=== PATIENT | female | born 1940 | race Caucasian/White ===

== ENCOUNTER 2016-08-23 09:38 | Inpatient (IN) | payer MEDICARE, MEDICAID ==
[~2016-08-23] VITALS: Ht 154.9 cm; Wt 58.9 kg
[2016-08-23] VITALS (14 sets, daily range): BP systolic 93–159; BP diastolic 46–94; PULSE 71–97; RESP 15–22; TEMP 97.6–98.8; O2SAT 95–100
[~2016-08-23 09:38] MED LIST: AMLO5TAB2 PO; COUM2TAB PO; DIGO0.12 PO; ESCI10TA PO; FURO20TA PO; MIRTA15 PO; MONT10TA4 PO; OMEP20TA PO; RANI150C PO; ROSU10 PO; ZYRT10CA PO
[2016-08-23] MEDS ORDERED: WARF-23 PO (10:08)
[2016-08-23] MEDS ORDERED: RANI300T PO (10:08)
[2016-08-23] MEDS ORDERED: AMLO10TA2 PO (10:08)
[2016-08-23] MEDS ORDERED: WARF4TAB52 PO (10:09)
[2016-08-23] MEDS ORDERED: WARF-20 PO (10:09)
--- NOTE | 2016-08-23 10:11 | PD ---
HPI Chief Complaint: GI Complaint Time Seen by Provider: 10:04 Travel History International Travel<30 days: No Contact w/Intl Traveler<30days: No Traveled to known affect area: No History of Present Illness HPI 76-year-old female with history of A. fib, on Coumadin, previous stroke with expressive aphasia, previous GI bleeding, presents to the ER today brought in by EMS because she has been vomiting red blood since this morning. She was sent in by family. She has difficulty expressing herself but denies chest pains , trouble breathing, or other issues. Modifying Factors: None Associated Signs & Symptoms: Gastrointestinal bleeding Risk Factors: Coumadin PFSH Past Medical History Hx Anticoagulant Therapy: Yes Anemia: Yes Arthritis: No Asthma: No Atrial Fibrillation: Yes Autoimmune Disease: No Heart Rhythm Problems: Yes (Afib) Cancer: Yes (COLON / LUNG) Cardiovascular Problems: Yes High Cholesterol: No Chemotherapy: Yes Chest Pain: No Congestive Heart Failure: No COPD: No Cerebrovascular Accident: Yes Diabetes: No Diminished Hearing: No Endocrine: No Gastrointestinal Disorders: Yes GERD: Yes (GERD) Genitourinary: No Headaches: No Hiatal Hernia: No Hypertension: Yes Immune Disorder: No Implanted Vascular Access Dvce: No Musculoskeletal: No Neurologic: Yes (CVA X3 / Expressive Aphasia) Psychiatric: No Reproductive: No Respiratory: Yes Immunizations Current: No Migraines: No Radiation Therapy: Yes Seizures: Yes (Possibly reported / uncertain hx) Sickle Cell Disease: No Sleep Apnea: No Thyroid Disease: No Ulcer: No Menopausal: Yes Past Surgical History Abdominal Surgery: Yes (hsterectomy) AICD: No Arteriovenous Shunt: No Cardiac Surgery: Yes (afib) Ear Surgery: No Endocrine Surgery: No Eye Surgery: Yes (cataracts) Genitourinary Surgery: No Gynecologic Surgery: No Hysterectomy: Yes Insulin Pump: No Joint Replacement: No Neurologic Surgery: No Oral Surgery: No Pacemaker: No Thoracic Surgery: Yes (LEFT LUNG REMOVED) Other Surgery: Yes Social History Alcohol Use: No Tobacco Use: No Substance Use: No Allergies-Medications (Allergen,Severity, Reaction): Coded Allergies: Iron (Verified Allergy, Severe, Nausea/Vomiting, 05/24/16) Lipitor (Verified Allergy, Severe, Swelling, 05/24/16) JOINT SWELLING/PAIN Nonsteroidal Anti-Inflammatory Agts (Verified Allergy, Severe, GI UPSET AND SWELLING, 05/24/16) Cardizem (Verified Allergy, Unknown, RASH, 05/24/16) Reported Meds & Prescriptions Reported Meds & Active Scripts Active Reported Warfarin 3 Mg Tab 3 Mg PO DAILY Amlodipine (Amlodipine Besylate) 10 Mg Tab 10 Mg PO DAILY Ranitidine (Ranitidine HCl) 300 Mg Tab 300 Mg PO DAILY Montelukast (Montelukast Sodium) 10 Mg Tab 10 Mg PO HS Digoxin 0.125 Mg Tab 0.125 Mg PO EVERY OTHER DAY Furosemide 20 Mg Tab 20 Mg PO DAILY Omeprazole 20 Mg Tab 20 Mg PO DAILY Crestor (Rosuvastatin Calcium) 10 Mg Tab 10 Mg PO DAILY Mirtazapine 15 Mg Tab 15 Mg PO HS Escitalopram (Escitalopram Oxalate) 10 Mg Tab 10 Mg PO DAILY Review of Systems Except as stated in HPI: all other systems reviewed are Neg Physical Exam Narrative GENERAL: Well-nourished, well-developed elderly white female patient in no acute distress. Awake and oriented 3. SKIN: Warm and dry. Pale conjunctiva. HEAD: Normocephalic. EYES: No scleral icterus. No injection or drainage. NECK: Supple, trachea midline. CARDIOVASCULAR: Regular rate and rhythm without murmurs, gallops, or rubs. RESPIRATORY: Breath sounds equal bilaterally. No accessory muscle use. GASTROINTESTINAL: Abdomen soft, non-tender, nondistended. MUSCULOSKELETAL: No cyanosis, or edema. BACK: Nontender without obvious deformity. No CVA tenderness. Data Data Last Documented VS Vital Signs Date Time Temp Pulse Resp B/P Pulse Ox O2 Delivery O2 Flow Rate FiO2 08/23/16 09:54 98.8 86 22 98/46 99 Orders Complete Blood Count With Diff (08/23/16 10:01) Comprehensive Metabolic Panel (08/23/16 10:01) Lipase (08/23/16 10:01) Prothrombin Time / Inr (Pt) (08/23/16 10:01) Act Partial Throm Time (Ptt) (08/23/16 10:01) Type And Screen (08/23/16 10:01) Ecg Monitoring (08/23/16 10:01) Iv Access Insert/Monitor (08/23/16 10:01) Oximetry (08/23/16 10:01) Sodium Chloride 0.9% Flush (Ns Flush) (08/23/16 10:15) Sodium Chlor 0.9% 1000 Ml Inj (Ns 1000 M (08/23/16 10:15) Pantoprazole Inj (Protonix Inj) (08/23/16 10:15) Phytonadione Inj (Vitamin K Inj) (08/23/16 10:15) Digoxin (08/23/16 10:10) Red Blood Cells (Rbc) (08/23/16 10:34) Fresh Frozen Plasma (Ffp) (08/23/16 10:34) Blood Product Administration .UPON TRANSFUSION (08/23/16 10:34) Sodium Chlor 0.9% 250 Ml Inj (Ns 250 Ml (08/23/16 10:45) Octreotide Inj (Sandostatin Inj) (08/23/16 10:45) Admit Order (Ed Use Only) (08/23/16 10:54) Consult Gastroenterology (08/23/16 ) Labs Laboratory Tests Test 08/23/16 08/23/16 08/23/16 10:10 10:11 10:34 White Blood Count 9.5 TH/MM3 Red Blood Count 2.60 MIL/MM3 Hemoglobin 7.5 GM/DL Hematocrit 23.0 % Mean Corpuscular Volume 88.6 FL Mean Corpuscular Hemoglobin 28.9 PG Mean Corpuscular Hemoglobin 32.6 % Concent Red Cell Distribution Width 17.0 % Platelet Count 345 TH/MM3 Mean Platelet Volume 8.1 FL Neutrophils (%) (Auto) 51.7 % Lymphocytes (%) (Auto) 36.2 % Monocytes (%) (Auto) 7.8 % Eosinophils (%) (Auto) 3.5 % Basophils (%) (Auto) 0.8 % Neutrophils # (Auto) 4.9 TH/MM3 Lymphocytes # (Auto) 3.4 TH/MM3 Monocytes # (Auto) 0.7 TH/MM3 Eosinophils # (Auto) 0.3 TH/MM3 Basophils # (Auto) 0.1 TH/MM3 CBC Comment DIFF FINAL Differential Comment Prothrombin Time 65.4 SEC Prothromb Time International 5.5 RATIO Ratio Activated Partial 36.6 SEC Thromboplast Time Sodium Level 144 MEQ/L Potassium Level 4.7 MEQ/L Chloride Level 109 MEQ/L Carbon Dioxide Level 21.8 MEQ/L Anion Gap 13 MEQ/L Blood Urea Nitrogen 44 MG/DL Creatinine 1.47 MG/DL Estimat Glomerular Filtration 34 ML/MIN Rate Random Glucose 188 MG/DL Calcium Level 8.0 MG/DL Total Bilirubin 0.3 MG/DL Aspartate Amino Transf 16 U/L (AST/SGOT) Alanine Aminotransferase 16 U/L (ALT/SGPT) Alkaline Phosphatase 88 U/L Total Protein 5.7 GM/DL Albumin 3.0 GM/DL Lipase 140 U/L Digoxin Level 0.6 NG/ML Blood Type O POSITIVE Antibody Screen NEGATIVE Crossmatch Leukocyte-Reduced Red Blood Cells Blood Bank Comment MDM Medical Decision Making Medical Screen Exam Complete: Yes Emergency Medical Condition: Yes Medical Record Reviewed: Yes Interpretation(s) Laboratory Tests Test 08/23/16 10:10 Red Blood Count 2.60 MIL/MM3 (4.00-5.30) Hemoglobin 7.5 GM/DL (11.6-15.3) Hematocrit 23.0 % (35.0-46.0) Prothrombin Time 65.4 SEC (9.8-11.6) Activated Partial 36.6 SEC Thromboplast Time (24.3-30.1) Chloride Level 109 MEQ/L (98-107) Blood Urea Nitrogen 44 MG/DL (7-18) Creatinine 1.47 MG/DL (0.50-1.00) Estimat Glomerular Filtration 34 ML/MIN (>89) Rate Random Glucose 188 MG/DL (74-106) Calcium Level 8.0 MG/DL (8.5-10.1) Albumin 3.0 GM/DL (3.4-5.0) Differential Diagnosis Gastrointestinal bleedingrevaluate for anemia versus coagulopathy Narrative Course Patient is anemic. INR is elevated. Patient was given vitamin K, FFP's, 1 L of fluids, Protonix, octreotide, 2 units of PRBCs in the ER. Case was discussed with Dr. Robison for admission. Dr. Prakash has been called regarding case. Planning to admit to ICU. We had made several attempts to contact GI including Dr. Olinda Nicholas but was unsuccessful. Consult has been placed for him. Aggregate critical care time was 30 minutes. Time to perform other separately billable procedures was not included in the critical care time. My time did not include minutes spent treating any other patients simultaneously or on activities that did not directly contribute to the patient's treatment. The services I provided to this patient were to treat and/or prevent clinically significant deterioration that could result in: Worsening GI bleeding, significant anemia, cardiac arrest, I provided critical care services requiring my management, as noted below: Chart data review, documentation time, medication orders and management, vital sign assessments/reviewing monitor data, ordering and reviewing lab tests, ordering and interpreting/reviewing x-rays and diagnostic studies, care of the patient and discussion of the patient with the admitting physicians. Diagnosis Primary Impression: Coagulopathy Additional Impressions: Bleeding on Coumadin Upper GI bleed Anemia Admitting Information Admitting Physician Requests: Admit Mando Osullivan MD Aug 23, 2016 10:11
[2016-08-23] MEDS ORDERED: WARF-58 PO (10:13)
[2016-08-23] MEDS ORDERED: PANTOPRAZOLE INJ 80 MG in SODIUM CHLORIDE 0.9% INJ 35 ML IV ONE (10:15)
[2016-08-23] MEDS ORDERED: PHYTONADIONE INJ 10 MG in SODIUM CHLORIDE 0.9% INJ 50 ML IV ONE (10:15)
[2016-08-23] MEDS ORDERED: SODIUM CHLOR 0.9% 1000 ML INJ 1,000 ML IV ONE (10:15)
[2016-08-23] MEDS ORDERED: SODIUM CHLORIDE 0.9% FLUSH 5 ML FLUSH IVF PRN (10:15)
[2016-08-23 10:27] LABS: AUTOMATED NEUTROPHIL # 4.9 TH/MM3 (1.8-7.7); BASOPHIL # 0.1 TH/MM3 (0-0.2); BASOPHIL % 0.8 % (0.0-2.0); EOSINOPHIL # 0.3 TH/MM3 (0-0.4); EOSINOPHIL % 3.5 % (0.0-4.0); HEMO FLAGS DIFF FINAL; LYMPH % 36.2 % (9.0-44.0); LYMPHOCYTE # 3.4 TH/MM3 (1.0-4.8); MEAN CELL VOLUME 88.6 FL (80.0-100.0); MEAN CORPUSCULAR HEMOGLOBIN 28.9 PG (27.0-34.0); MEAN CORPUSCULAR HGB CONC 32.6 % (32.0-36.0); MONO % 7.8 % (0.0-8.0); NEUT % 51.7 % (16.0-70.0); PLATELET COUNT 345 TH/MM3 (150-450); WHITE BLOOD COUNT 9.5 TH/MM3 (4.0-11.0)
[2016-08-23 10:43] LABS: ALT (GPT) 16 U/L (10-53); ANION GAP 13 MEQ/L (5-15); APTT (PATIENT) 36.6 SEC (24.3-30.1); AST (GOT) 16 U/L (15-37); BICARBONATE 21.8 MEQ/L (21.0-32.0); BLOOD UREA NITROGEN 44 MG/DL (7-18); CHLORIDE 109 MEQ/L (98-107); GLOMERULAR FILTRATION RATE 34 ML/MIN (>89); INTERNATIONAL NORMALIZED RATIO 5.5 RATIO; POTASSIUM 4.7 MEQ/L (3.5-5.1); PROTHROMBIN TIME - PATIENT 65.4 SEC (9.8-11.6); SODIUM (NA) 144 MEQ/L (136-145)
[2016-08-23] MEDS ORDERED: SODIUM CHLOR 0.9% 250 ML INJ 250 ML IV ONE ×2 (10:45→17:30)
[2016-08-23 10:58] LABS: ALKALINE PHOSPHATASE 88 U/L (45-117); DIGOXIN 0.6 NG/ML (0.8-2.0); TOTAL BILIRUBIN ADULT 0.3 MG/DL (0.2-1.0)
[2016-08-23] MEDS: OCTREOTIDE INJ 500 MCG in SODIUM CHLORID 0.9% 500 ML INJ 500 ML IV SCH ×2 (11:11→22:30)
[2016-08-23] MEDS ORDERED: ONDANSETRON HCL 4 MG/2 ML VIAL IVP PRN (11:15)
[2016-08-23] MEDS ORDERED: NALOXONE HCL 0.4 MG/ML AMP IV PRN (11:15)
[2016-08-23] MEDS ORDERED: SODIUM CHLORIDE 0.9% FLUSH 5 ML FLUSH FLUSH PRN (11:15)
--- NOTE | 2016-08-23 11:19 | HP.UPD ---
H&P Update Note This is a 76-year-old female with a history of 3 strokes. She has atrial fibrillation and is on Coumadin. She came into the emergency department today 08/23/16 with hematemesis. She has a hemoglobin of 7.5 and an INR of 5.5. Systolic of 90. Borderline hemorrhagic shock. She is being admitted to ICU. She's been started on intravenous Protonix, fresh frozen plasma and octreotide drip. Vitamin K is also given. Patient seen and examined by the undersigned in room E 49 in the presence of her daughter. Case discussed with emergency department physician. GI consulted. Full history and physical to follow Lincoln Newsome MD Aug 23, 2016 11:17
[2016-08-23] MEDS ORDERED: SODIUM CHLOR 0.9% 1000 ML INJ 1,000 ML IV SCH (12:00)
[2016-08-23] MEDS: MORPHINE SULFATE 4 MG/ML INJ IV PUSH PRN ×2 (13:14→16:32)
--- NOTE | 2016-08-23 13:44 | PD.PN.STU ---
Subjective Remarks Patient is a 76 year old female with previous history of 3 strokes, A fib and on Coumadin. She comes into the ED today with hematemesis, systolic blood pressure of 93, Hgb of 7.5 and INR of 5.5. The patient points to whole abdominal wall when asked where pain is. The patient is a very poor historian and no other history could be obtained. Objective Vitals General: In abdominal distress grabbing various parts of her abdominal wall. Also trying to vomit in a bag. Poor historian and can't explain her pain and symptoms. ABD: normal bowel sounds heard, light palpation illicit pain in epigastrium and right and left abdominal pritchett. Vital Signs Date Time Temp Pulse Resp B/P Pulse Ox O2 Delivery O2 Flow Rate FiO2 08/23/16 13:11 71 16 110/55 100 Nasal Cannula 4 08/23/16 12:35 72 18 116/54 100 Nasal Cannula 4 08/23/16 12:03 97.6 73 18 107/52 100 Nasal Cannula 4 08/23/16 11:54 97.7 86 18 94/55 98 Nasal Cannula 4 08/23/16 11:50 97.7 77 18 94/55 95 Nasal Cannula 4 08/23/16 11:07 75 18 93/51 100 08/23/16 09:54 98.8 86 22 98/46 99 I/O 08/22/16 08/22/16 08/22/16 08/23/16 08/23/16 08/23/16 07:00 15:00 23:00 07:00 15:00 23:00 Output Total 550 ml Balance -550 ml Output Emesis 550 ml Result Diagram: 08/23/16 1010 08/23/16 1010 A/P Assessment and Plan Patient has hematemesis comes in with systolic bp at 93, INR 5.5, and Hgb at 7.5 with previous history of strokes, afib and on coumadin. Patient is in apparent severe abdominal pain. Upper GI bleed suspected. Prepared to stop Coumadin and perform EGD Everton Lange Aug 23, 2016 13:44
--- NOTE | 2016-08-23 17:01 | HHI.HP ---
HPI Service [facility]ists Primary Care Physician Nayla Conklin Admission Diagnosis GI bleed/significant anemia Diagnoses: Chief Complaint: bloody emesis and stools, abd cramping (Lena Villar) Travel History International Travel<30 Days: No Contact w/Intl Traveler <30 Da: No Traveled to Known Affected Are: No (Lena Villar) History of Present Illness This a pleasant 76-year-old white female who has a significant past medical history of A. fib on Coumadin, prior strokes with expressive aphasia, previous admissions for GI bleed and findings of AVM, previous blood transfusions, aortic stenosis, colon and lung cancer, left pneumonectomy 2006, colon resection. Pt. recently admitted 2015 for GI bleed, underwent GI work up and bleeding scan, required PRBC transfusion. EGD/Colonoscopy (05/28/16) showed hiatal hernia, gastritis, irregular z-line, colon polyps, diverticulosis. Pathology revealed features suggestive of a reactive gastropathy, no helicobacter pylori-like organisms are present. Colon with tubular adenoma. Pt. was discharged stable, she resumed Coumadin. Pt. is a poor historian, information obtained from daughter. Pt. was in usual state of health, eating well. Today, pt. started to have hematemesis, red blood since this morning, had 4-5 episodes. At this time she is actively vomiting blood, approximately 300 cc are noted. Complains of diffuse abdominal cramping. Has had bloody stools as well. INR was supratherapeutic, INR 5.5. HH 7.5/23. She is dehydrated , elevated BUN and creat 44/1.47. She was given Vit K, started on PPI drip. GI has evaluated and plans to scope tomorrow. Due to pt. actively bleeding, I have contacted Dr Nicholas as pt will need intervention tonight. Daughter is at bedside, she understands risk associated with procedure, shock, respiratory failure possible intubation. They both agree with procedure. Daughter endorses that pt is on Coumadin for CVA and hx afib. Recently changed cardiologists, now sees Dr. Waggoner. She is concerned about pt. going back on Coumadin as she continues to have recurrent GI bleeding but understands she is at risk for strokes. Pt. is hemodynamically stable, she is awake, somewhat anxious but understands what is happening. Denies any CP, SOB, no recent fever, no chills. She will be admitted to ICU, case has been discussed with Dr. Nichols. (Lena Villar) Review of Systems ROS Limitations: Poor Historian Gastrointestinal: COMPLAINS OF: Abdominal pain, Bloody stools, Nausea, Vomiting (Lena Villar) Past Family Social History Past Medical History Hypertension Hyperlipidemia History of CVA 3 Atrial fibrillation Iron deficient anemia History of seizures History of lung cancer History of colon cancer Gastroesophageal reflux GIB January 08-, required endoscopy with cauterization of AVM, biopsy of a nodule in the distal esophagitis and there was evidence of hiatal hernia, did have blood transfusion and FFP Recent admit in 2015 for anemia, GIB, had GI work up. - GIB. S/P EGD/ Colonoscopy (05/28/16)-----> hiatal hernia, gastritis, irregular z-line, colon polyps, diverticulosis. Pathology revealed features suggestive of a reactive gastropathy, no helicobacter pylori-like organisms are present. Colon with tubular adenoma. Past Surgical History Colon Resection Left pneumonectomy Endoscopies Abdominal hysterectomy Left lower extremity fracture with zuleyka Status post recent endoscopy with cauterization of AVM and biopsy 12/2015 Reported Medications Reported Meds & Active Scripts Active Reported Warfarin 3 Mg Tab 3 Mg PO DAILY Amlodipine (Amlodipine Besylate) 10 Mg Tab 10 Mg PO DAILY Ranitidine (Ranitidine HCl) 300 Mg Tab 300 Mg PO DAILY Montelukast (Montelukast Sodium) 10 Mg Tab 10 Mg PO HS Digoxin 0.125 Mg Tab 0.125 Mg PO EVERY OTHER DAY Furosemide 20 Mg Tab 20 Mg PO DAILY Omeprazole 20 Mg Tab 20 Mg PO DAILY Crestor (Rosuvastatin Calcium) 10 Mg Tab 10 Mg PO DAILY Mirtazapine 15 Mg Tab 15 Mg PO HS Escitalopram (Escitalopram Oxalate) 10 Mg Tab 10 Mg PO DAILY (Lena Villar) Allergies: Coded Allergies: Iron (Verified Allergy, Severe, Nausea/Vomiting, 08/23/16) Lipitor (Verified Allergy, Severe, Swelling, 08/23/16) JOINT SWELLING/PAIN Nonsteroidal Anti-Inflammatory Agts (Verified Allergy, Severe, GI UPSET AND SWELLING, 08/23/16) Cardizem (Verified Allergy, Unknown, RASH, 08/23/16) Active Ordered Medications Inpatient Medications Digoxin (Lanoxin) 0.125 mg EVERY OTHER DAY PO ; Start 08/25/16 at 09:00; Stop at 09:00; Status DC Escitalopram Oxalate (Lexapro) 10 mg DAILY PO ; Start 08/24/16 at 09:00; Stop 08/24/16 at 09:00; Status DC IV Flush (NS Flush) 2 ml BID FLUSH ; Start 08/23/16 at 21:00 IV Flush 2 ml 2 ml UNSCH PRN IVF FLUSH AFTER USING IV ACCESS; Start 08/23/16 at 10:15; Stop 08/23/16 at 11:22; Status DC Mirtazapine (Remeron) 15 mg HS PO ; Start 08/23/16 at 21:00; Stop 08/23/16 at 21: 00; Status DC Montelukast Sodium (Singulair) 10 mg HS PO ; Start 08/23/16 at 21:00; Stop at 21:00; Status DC Morphine Sulfate 1 mg 1 mg Q3H PRN IV PUSH pain 3-10 Last administered on 16:32; Start 08/23/16 at 13:00 Naloxone HCl (Narcan Inj) 0.4 mg UNSCH PRN IV SEE LABEL COMMENTS; Start at 11:15 Octreotide Acetate 500 mcg/ Sodium Chloride 500.5 ml @ 50 mls/hr Q10H IV Last administered on 08/23/16 11:11; Start 08/23/16 at 10:45 Ondansetron HCl (Zofran Inj) 4 mg Q6H PRN IVP NAUSEA OR VOMITING Last administered on 08/23/16 16:32; Start 08/23/16 at 11:15 Pantoprazole Sodium (Protonix Inj) 40 mg Q12H IV PUSH ; Start 08/23/16 at 18:00 Pantoprazole Sodium 80 mg/ Sodium Chloride 35 ml @ 420 mls/hr BOLUS ONCE IV Last administered on 08/23/16 10:25; Start 08/23/16 at 10:15; Stop 08/23/16 at 10: 19; Status DC Phytonadione 10 mg/Sodium Chloride 51 ml @ 102 mls/hr ONCE ONCE IV Last administered on 08/23/16t 10:25; Start 08/23/16 at 10:15; Stop 08/23/16 at 10:44; Status DC Sodium Chloride (NS 1000 ml Inj) 1,000 ml @ 100 mls/hr Q10H IV Last administered on 08/23/16 13:20; Start 08/23/16 at 12:00 Sodium Chloride (NS 250 ml Inj) 250 ml @ 15 mls/hr ONCE ONCE IV ; Start at 17:30; Stop 08/24/16 at 10:09 Family History Reviewed, noncontributory. Social History Lives with one of her daughters. No tobacco, no alcohol, no substance abuse. Does not use any assistive devices (Lena Villar) Physical Exam Vital Signs Vital Signs Date Time Temp Pulse Resp B/P Pulse Ox O2 Delivery O2 Flow Rate FiO2 08/23/16 16:35 97.6 80 18 147/65 100 Nasal Cannula 2 08/23/16 16:35 97.6 80 18 147/65 100 Nasal Cannula 2 08/23/16 16:21 18 08/23/16 16:20 97.6 78 18 124/61 99 Nasal Cannula 2 08/23/16 15:50 79 18 115/50 100 Nasal Cannula 2 08/23/16 13:41 97 16 104/53 98 Nasal Cannula 4 08/23/16 13:11 71 16 110/55 100 Nasal Cannula 4 08/23/16 12:35 72 18 116/54 100 Nasal Cannula 4 08/23/16 12:03 97.6 73 18 107/52 100 Nasal Cannula 4 08/23/16 11:54 97.7 86 18 94/55 98 Nasal Cannula 4 08/23/16 11:50 97.7 77 18 94/55 95 Nasal Cannula 4 08/23/16 11:07 75 18 93/51 100 08/23/16 09:54 98.8 86 22 98/46 99 Physical Exam GENERAL: This is a well-nourished, well-developed patient, elderly female, noted with active hematemesis and hematochezia SKIN: Pale, dry. HEAD: Atraumatic. Normocephalic. No temporal or scalp tenderness. EYES: Pupils equal round and reactive. Extraocular motions intact. No scleral icterus. No injection or drainage. ENT: Nose without bleeding, purulent drainage or septal hematoma. Throat without erythema, tonsillar hypertrophy or exudate. Uvula midline. Airway patent. NECK: Trachea midline. No JVD or lymphadenopathy. Supple, nontender, no meningeal signs. CARDIOVASCULAR: RRR, soft murmur. BLE with 1+ pedal pulses. RESPIRATORY: Clear to auscultation. Breath sounds equal bilaterally. No wheezes , rales, or rhonchi. GASTROINTESTINAL: Abdomen soft, diffuse tenderness, nondistended. No hepato- splenomegaly, or palpable masses. No guarding. Bowel sounds normoactive x 4. MUSCULOSKELETAL: Extremities without clubbing, cyanosis, or edema. No joint tenderness, effusion, or edema noted. No calf tenderness. Negative Homans sign bilaterally. NEUROLOGICAL: Awake, oriented x 2, some expressive aphasia, following simple commands. Laboratory Laboratory Tests Test 08/23/16 08/23/16 08/23/16 10:10 10:11 10:34 White Blood Count 9.5 Red Blood Count 2.60 Hemoglobin 7.5 Hematocrit 23.0 Mean Corpuscular Volume 88.6 Mean Corpuscular Hemoglobin 28.9 Mean Corpuscular Hemoglobin 32.6 Concent Red Cell Distribution Width 17.0 Platelet Count 345 Mean Platelet Volume 8.1 Neutrophils (%) (Auto) 51.7 Lymphocytes (%) (Auto) 36.2 Monocytes (%) (Auto) 7.8 Eosinophils (%) (Auto) 3.5 Basophils (%) (Auto) 0.8 Neutrophils # (Auto) 4.9 Lymphocytes # (Auto) 3.4 Monocytes # (Auto) 0.7 Eosinophils # (Auto) 0.3 Basophils # (Auto) 0.1 CBC Comment DIFF FINAL Differential Comment Prothrombin Time 65.4 Prothromb Time International 5.5 Ratio Activated Partial 36.6 Thromboplast Time Sodium Level 144 Potassium Level 4.7 Chloride Level 109 Carbon Dioxide Level 21.8 Anion Gap 13 Blood Urea Nitrogen 44 Creatinine 1.47 Estimat Glomerular Filtration 34 Rate Random Glucose 188 Calcium Level 8.0 Total Bilirubin 0.3 Aspartate Amino Transf 16 (AST/SGOT) Alanine Aminotransferase 16 (ALT/SGPT) Alkaline Phosphatase 88 Total Protein 5.7 Albumin 3.0 Lipase 140 Digoxin Level 0.6 Blood Type O POSITIVE Antibody Screen NEGATIVE Crossmatch Leukocyte-Reduced Red Blood Cells Blood Bank Comment (Lena Villar) Result Diagram: 08/23/16 1010 08/23/16 1010 Assessment and Plan Problem List: (1) Upper GI bleed (2) Anemia (3) Coagulopathy (4) History of CVA (cerebrovascular accident) without residual deficits (5) Aphasia (6) Hypertension (7) GERD (gastroesophageal reflux disease) (8) Atrial fibrillation (9) Supratherapeutic INR (10) Hx of arteriovenous malformation (AVM) (11) Renal insufficiency Assessment and Plan Admit to Dr. Newsome. 76-year-old female with recurrent GI bleed, history of AVM, recently admitted in May for same. Patient is on Coumadin for history of stroke, A. fib. Patient presented to the emergency room with hematemesis and bloody stools, diffuse abdominal pain, INR was supratherapeutic. She was noted anemic, hemoglobin 7.5. Patient actively bleeding, packed RBCs and FFP order, vitamin K was given. Protonic trips was initiated in the emergency room. Acute GI bleed -Patient will be admitted to the intensive care unit -Continue with packed RBC and FFP transfusion, Dr. Nicholas has ordered another 4 units of FFP -Dr. Nicholas contacted, he will be coming in to do endoscopic procedure tonight. INR in the morning Serial H&H Hold Coumadin Patient will be monitored in intensive care unit, superintendent car construction has been consulted. Case has been discussed with Dr. Nichols. -Continue with Protonix drip Continue with cautious hydration Acute renal injury, secondary to dehydration Continue with cautious hydration -BMP in the morning Coagulopathy, on Coumadin Hold Coumadin Follow INR daily History of A. fib, on Coumadin -Consult Dr. Waggoner for evaluation, will need recommendations whether it will be safe to resume Coumadin after GI bleeding is controlled. Patient has had recurrent GI bleed since last year. History of CVA, residual expressive aphasia Monitor closely We will hold Coumadin Discussed with daughter at length, she understands the risk of patient being off Coumadin in the presence of recurrent strokes. History hypertension, currently stable, initially was hypotensive. -Hold antihypertensive agents Continue with IV fluids GERD, Continue with Protonix drip SCDs for DVT prophylaxis Protonix for GI prophylaxis Home medications reviewed, initiated as indicated Plan of care has been discussed with the patient and her daughter, their questions have been answered in detail. Discussed possibility of complications during GI procedure, possible intubation, shock. They both understand the risk and agree with intubation if necessary. Plan of care discussed with attending and registered nurse. Case also discussed with Dr. Nichols Patient's condition is guarded Patient was seen by myself and Dr. Newsome, this H&P is written on his behalf ( Lena Villar) Assessment and Plan seen and examined by myself,Dr Newsome , Critical condition, over 45 min. spent Directly on this critical patient today discussed with nurse Discussed with patient And her daughter Discussed with mid-level practitioner The exam, history, and the medical decision-making described in the above note were completed with the assistance of the mid-level provider. I reviewed the findings presented. I attest that I had a [id number] encounter with the patient on the same day, and personally performed and documented my assessment and findings in the medical record. (Lincoln Newsome MD) Physician Certification 2 Midnight Certification Type: Admission for Inpatient Services Order for Inpatient Services The services are ordered in accordance with Medicare regulations or non- Medicare payer requirements, as applicable. In the case of services not specified as inpatient-only, they are appropriately provided as inpatient services in accordance with the 2-midnight benchmark. Estimated LOS (days): 2 2 days is the estimated time the patient will need to remain in the hospital, assuming treatment plan goals are met and no additional complications. Post-Hospital Plan: SNF (Lena Villar) Problem Qualifiers (1) Anemia: Qualified Code: D64.9 - Anemia, unspecified type (2) Hypertension: Qualified Code: I10 - Essential hypertension (3) GERD (gastroesophageal reflux disease): Qualified Code: K21.9 - Gastroesophageal reflux disease, esophagitis presence not specified (4) Atrial fibrillation: Qualified Code: I48.0 - Paroxysmal atrial fibrillation Lena Villar Aug 23, 2016 17:00 Lincoln Newsome MD Aug 23, 2016 23:00
--- NOTE | 2016-08-23 17:46 | PD.CONS ---
HPI History of Present Illness This is a 76 year old female whom we are asked to evaluate for hematemesis and melena the patient has underlying expressive aphasia she comes in with an INR of 5.5 patient on Coumadin for atrial fibrillation information obtained from her daughter who is in the room apparently the patient has had GI bleeds in the past and has had problems with anemia for a prolonged period of time she's had multiple endoscopies including capsule endoscopy nothing to really been found in the past to explain anemia and/or bleeding the patient was in this hospital back in May and underwent an EGD and a colonoscopy which showed diverticulosis and some gastritis but otherwise it was unremarkable apparently the patient was her perky self yesterday but then today she vomited up some blood and ended up coming into the emergency room the patient is laying comfortably in bed but she does complain of some upper abdominal tenderness but little little else information is obtained from the patient due to her condition PFSH Past Medical History PAST MEDICAL HISTORY 1. Significant for anemia 2. atrial fibrillation with anticoagulation 3. stroke. With expressive aphasia 4. She had a history of AVM 5. reflux 6. hypertension. 7. History of cancer with radiation therapy. Past Surgical History PAST SURGICAL HISTORY 1. Significant for hysterectomy 2. cataract surgery 3. ablation because of atrial fibrillation. 4. left lung removal. 5. Endoscopies Coded Allergies: Iron (Verified Allergy, Severe, Nausea/Vomiting, 08/23/16) Lipitor (Verified Allergy, Severe, Swelling, 08/23/16) JOINT SWELLING/PAIN Nonsteroidal Anti-Inflammatory Agts (Verified Allergy, Severe, GI UPSET AND SWELLING, 08/23/16) Cardizem (Verified Allergy, Unknown, RASH, 08/23/16) Medications Current Medications IV Flush 2 ml 2 ml UNSCH PRN IVF FLUSH AFTER USING IV ACCESS; Start 08/23/16 at 10:15; Stop 08/23/16 at 11:22; Status DC Sodium Chloride 1,000 ml @ 999 mls/hr BOLUS ONCE IV Last administered on 10:12; Start 08/23/16 at 10:15; Stop 08/23/16 at 11:15; Status DC Pantoprazole Sodium 80 mg/ Sodium Chloride 35 ml @ 420 mls/hr BOLUS ONCE IV Last administered on 08/23/16 10:25; Start 08/23/16 at 10:15; Stop 08/23/16 at 10: 19; Status DC Phytonadione 10 mg/Sodium Chloride 51 ml @ 102 mls/hr ONCE ONCE IV Last administered on 08/23/16 10:25; Start 08/23/16 at 10:15; Stop 08/23/16 at 10:44; Status DC Sodium Chloride 250 ml @ 15 mls/hr ONCE ONCE IV Last administered on 11:55; Start 08/23/16 at 10:45; Stop 08/24/16 at 03:24 Octreotide Acetate 500 mcg/ Sodium Chloride 500.5 ml @ 50 mls/hr Q10H IV Last administered on 08/23/16 11:11; Start 08/23/16 at 10:45 Sodium Chloride (NS 1000 ml Inj) 1,000 ml @ 100 mls/hr Q10H IV Last administered on 08/23/16 13:20; Start 08/23/16 at 12:00 IV Flush (NS Flush) 2 ml UNSCH PRN FLUSH FLUSH AFTER USING IV ACCESS; Start 08/23/16 at 11:15 IV Flush (NS Flush) 2 ml BID FLUSH ; Start 08/23/16 at 21:00 Ondansetron HCl (Zofran Inj) 4 mg Q6H PRN IVP NAUSEA OR VOMITING Last administered on 08/23/16 16:32; Start 08/23/16 at 11:15 Naloxone HCl (Narcan Inj) 0.4 mg UNSCH PRN IV SEE LABEL COMMENTS; Start at 11:15 Pantoprazole Sodium (Protonix Inj) 40 mg Q12H IV PUSH ; Start 08/23/16 at 18:00 Digoxin (Lanoxin) 0.125 mg EVERY OTHER DAY PO ; Start 08/25/16 at 09:00; Stop at 09:00; Status DC Escitalopram Oxalate (Lexapro) 10 mg DAILY PO ; Start 08/24/16 at 09:00; Stop 08/24/16 at 09:00; Status DC Mirtazapine (Remeron) 15 mg HS PO ; Start 08/23/16 at 21:00; Stop 08/23/16 at 21: 00; Status DC Montelukast Sodium (Singulair) 10 mg HS PO ; Start 08/23/16 at 21:00; Stop at 21:00; Status DC Morphine Sulfate 1 mg 1 mg Q3H PRN IV PUSH pain 3-10 Last administered on t 16:32; Start 08/23/16 at 13:00 Sodium Chloride 250 ml @ 15 mls/hr ONCE ONCE IV ; Start 08/23/16 at 17:30; Stop 08/24/16 at 10:09 Erythromycin Lactobionate/ Sodium Chloride (Erythromycin Inj/NS Inj) 100 ml @ 100 mls/hr ONCE ONCE IV ; Start 08/23/16 at 17:30; Stop 08/23/16 at 18:29; Status UNV Family History Noncontributory Social History SOCIAL HISTORY Negative for tobacco, drug or alcohol at this time. Review of Systems ROS Patient has upper abdominal pain but little information is obtained this patient has expressive aphasia GI Exam Vitals I&O Vital Signs Date Time Temp Pulse Resp B/P Pulse Ox O2 Delivery O2 Flow Rate FiO2 08/23/16 17:29 97.6 81 18 159/65 100 Nasal Cannula 2 08/23/16 17:29 18 08/23/16 16:35 97.6 80 18 147/65 100 Nasal Cannula 2 08/23/16 16:35 97.6 80 18 147/65 100 Nasal Cannula 2 08/23/16 16:20 97.6 78 18 124/61 99 Nasal Cannula 2 08/23/16 15:50 79 18 115/50 100 Nasal Cannula 2 08/23/16 13:41 97 16 104/53 98 Nasal Cannula 4 08/23/16 13:11 71 16 110/55 100 Nasal Cannula 4 08/23/16 12:35 72 18 116/54 100 Nasal Cannula 4 08/23/16 12:03 97.6 73 18 107/52 100 Nasal Cannula 4 08/23/16 11:54 97.7 86 18 94/55 98 Nasal Cannula 4 08/23/16 11:50 97.7 77 18 94/55 95 Nasal Cannula 4 08/23/16 11:07 75 18 93/51 100 08/23/16 09:54 98.8 86 22 98/46 99 I/O 08/22/16 08/22/16 08/22/16 08/23/16 08/23/16 08/23/16 07:00 15:00 23:00 07:00 15:00 23:00 Output Total 550 ml Balance -550 ml Output Emesis 550 ml Laboratory Test 08/23/16 08/23/16 08/23/16 10:10 10:11 10:34 White Blood Count 9.5 TH/MM3 Red Blood Count 2.60 MIL/MM3 Hemoglobin 7.5 GM/DL Hematocrit 23.0 % Mean Corpuscular Volume 88.6 FL Mean Corpuscular Hemoglobin 28.9 PG Mean Corpuscular Hemoglobin 32.6 % Concent Red Cell Distribution Width 17.0 % Platelet Count 345 TH/MM3 Mean Platelet Volume 8.1 FL Neutrophils (%) (Auto) 51.7 % Lymphocytes (%) (Auto) 36.2 % Monocytes (%) (Auto) 7.8 % Eosinophils (%) (Auto) 3.5 % Basophils (%) (Auto) 0.8 % Neutrophils # (Auto) 4.9 TH/MM3 Lymphocytes # (Auto) 3.4 TH/MM3 Monocytes # (Auto) 0.7 TH/MM3 Eosinophils # (Auto) 0.3 TH/MM3 Basophils # (Auto) 0.1 TH/MM3 CBC Comment DIFF FINAL Differential Comment Prothrombin Time 65.4 SEC Prothromb Time International 5.5 RATIO Ratio Activated Partial 36.6 SEC Thromboplast Time Sodium Level 144 MEQ/L Potassium Level 4.7 MEQ/L Chloride Level 109 MEQ/L Carbon Dioxide Level 21.8 MEQ/L Anion Gap 13 MEQ/L Blood Urea Nitrogen 44 MG/DL Creatinine 1.47 MG/DL Estimat Glomerular Filtration 34 ML/MIN Rate Random Glucose 188 MG/DL Calcium Level 8.0 MG/DL Total Bilirubin 0.3 MG/DL Aspartate Amino Transf 16 U/L (AST/SGOT) Alanine Aminotransferase 16 U/L (ALT/SGPT) Alkaline Phosphatase 88 U/L Total Protein 5.7 GM/DL Albumin 3.0 GM/DL Lipase 140 U/L Digoxin Level 0.6 NG/ML Blood Type O POSITIVE Antibody Screen NEGATIVE Crossmatch Leukocyte-Reduced Red Blood Cells Blood Bank Comment Physical Examination HEENT: Pupils round and reactive to light; normocephalic; atraumatic; no jaundice. Throat is clear. NECK: Neck is supple, no JVD, no lymphadenopathy. CHEST: Chest is clear to auscultation and percussion. CARDIAC: Regular rate and rhythm with no murmur gallop or rubs. ABDOMEN: Soft, nondistended, upper abdominal tenderness no rebound or guarding ; no hepatosplenomegaly; bowel sounds are present in all four quadrants. EXTREMITIES: No clubbing, cyanosis, or edema. SKIN: Normal; no rash; no jaundice. REPRODUCTION ARTIST: No focal deficits; patient with expressive aphasia Assessment and Plan Plan Upper GI bleed with coagulopathy Agree with current supportive care continue with close monitoring and transfusion as needed and cardiovascular resuscitation We will correct her coagulopathy and give more fresh frozen plasma Agree with IV protonix We'll plan for an EGD today Further recommendations shall depend on her hospital course Hector Nicholas MD Aug 23, 2016 17:46
[2016-08-23] MEDS ORDERED: KETAMINE HCL 500 MG/5 ML VIAL ONE (18:20)
[2016-08-23] MEDS ORDERED: PROPOFOL 200 MG/20 ML AMP IV ONE (18:34)
--- NOTE | 2016-08-23 18:57 | PD.PROCEDR ---
GI Procedure REFERRING PHYSICIAN Dr. Newsome PROCEDURE PERFORMED EGD INDICATION FOR PROCEDURE Hematemesis PROCEDURE: The procedure, risks and benefits were discussed with Ms. Turcios and informed consent was obtained. Anesthesia sedated her with Diprivan. She was placed in the left lateral decubitus position. EGD: The Pentax videoscope was introduced through the oropharynx and advanced to the second portion of the duodenum under direct visualization. Retroflexion was performed in the stomach. FINDINGS: The esophagus this appeared to be unremarkable and within normal limits The stomach there was a large hiatal hernia and there was slight amount of food debris and melenic material but otherwise the gastric mucosa was unremarkable and within normal limits no active bleeding was seen and no lesions that could lead to bleeding were seen The duodenum this was normal ESTIMATED BLOOD LOSS: None SPECIMENS REMOVED: None COMPLICATIONS: None IMPRESSION: Recent upper GI bleed Hiatal hernia Otherwise unremarkable EGD possibly suggestive of a dieulafoy PLAN: Supportive care PPI Clear liquid diet Probable EGD on Saturday to reassess if patient still in the hospital otherwise follow up with GI in the office Hector Nicholas MD Aug 23, 2016 18:57
[2016-08-23] MEDS ORDERED: DO NOT ADM ANY ANTICOAGULANT DRUGS XX PRN (19:30)
[2016-08-23] MEDS: SODIUM CHLOR 0.9% 1000 ML INJ 1,000 ML IV SCH (19:33)
[2016-08-23] MEDS ORDERED: LORazepam 2 MG/ML VIAL IV PRN (19:45)
[2016-08-23] MEDS ORDERED: CHLORHEXIDINE GLUCONATE 2 % 1 PACK (2 CLOTHS) TOP PRN (19:45)
[2016-08-23] MEDS ORDERED: ZOLPIDEM TARTRATE 5 MG TAB PO PRN (19:45)
[2016-08-23] MEDS ORDERED: SODIUM CHLORIDE 0.9% FLUSH 5 ML FLUSH IV FLUSH PRN (19:45)
[2016-08-23] MEDS ORDERED: ACETAMINOPHEN 325 MG TAB PO PRN (19:45)
[2016-08-23] MEDS ORDERED: MISCELLANEOUS NURSING INFORMATION XX SCH (19:45)
[2016-08-23] MEDS ORDERED: ERYTHROMYCIN INJ 250 MG in SODIUM CHLORIDE 0.9% INJ 100 ML IV ONE (20:00)
[2016-08-23] MEDS ORDERED: MONTELUKAST SODIUM 10 MG TAB PO SCH (21:00)
[2016-08-23] MEDS ORDERED: SODIUM CHLORIDE 0.9% FLUSH 5 ML FLUSH FLUSH SCH (21:00)
[2016-08-23] MEDS: SODIUM CHLORIDE 0.9% FLUSH 5 ML FLUSH IV FLUSH SCH (21:00)
[2016-08-23] MEDS ORDERED: MIRTAZAPINE 15 MG TAB PO SCH (21:00)
[2016-08-23 22:05] LABS: INDIRECT BILIRUBIN 0.1 MG/DL (0.0-0.8); TOTAL BILIRUBIN ADULT 0.2 MG/DL (0.2-1.0)
--- NOTE | 2016-08-23 22:19 | PD.CONS ---
HPI Service Critical Care Medicine Consult Requested By Primary Care Physician Nayla Conklin History of Present Illness 76 year old female admitted for hematemesis and melena the patient has underlying expressive aphasia she comes in with an INR of 5.5 patient on Coumadin for atrial fibrillation. Patient has had GI bleeds in the past and has had problems with anemia for a prolonged period of time she's had multiple endoscopies including capsule endoscopy nothing to really been found in the past to explain anemia and/or bleeding the patient was in this hospital back in May and underwent an EGD and a colonoscopy which showed diverticulosis and some gastritis but otherwise it was unremarkable apparently the patient was her perky self yesterday but then today she vomited up some blood and ended up coming into the emergency room. Review of Systems ROS Unable to obtain due to aphasia Past Family Social History Allergies: Coded Allergies: Iron (Verified Allergy, Severe, Nausea/Vomiting, 08/23/16) Lipitor (Verified Allergy, Severe, Swelling, 08/23/16) JOINT SWELLING/PAIN Nonsteroidal Anti-Inflammatory Agts (Verified Allergy, Severe, GI UPSET AND SWELLING, 08/23/16) Cardizem (Verified Allergy, Unknown, RASH, 08/23/16) Past Medical History 1. Significant for anemia 2. atrial fibrillation with anticoagulation 3. stroke. With expressive aphasia 4. She had a history of AVM 5. reflux 6. hypertension. 7. History of cancer with radiation therapy. Past Surgical History 1. Significant for hysterectomy 2. cataract surgery 3. ablation because of atrial fibrillation. 4. left lung removal. 5. Endoscopies Reported Medications Reported Meds & Active Scripts Active Reported Warfarin 3 Mg Tab 3 Mg PO DAILY Amlodipine (Amlodipine Besylate) 10 Mg Tab 10 Mg PO DAILY Ranitidine (Ranitidine HCl) 300 Mg Tab 300 Mg PO DAILY Montelukast (Montelukast Sodium) 10 Mg Tab 10 Mg PO HS Digoxin 0.125 Mg Tab 0.125 Mg PO EVERY OTHER DAY Furosemide 20 Mg Tab 20 Mg PO DAILY Omeprazole 20 Mg Tab 20 Mg PO DAILY Crestor (Rosuvastatin Calcium) 10 Mg Tab 10 Mg PO DAILY Mirtazapine 15 Mg Tab 15 Mg PO HS Escitalopram (Escitalopram Oxalate) 10 Mg Tab 10 Mg PO DAILY Active Ordered Medications Current Medications Medications (Trade) Dose Ordered Sig/Livia Route PRN Reason Start Time Stop Time Status Last Admin Dose Admin Sodium Chloride 250 ml @ 15 mls/hr ONCE ONCE IV 08/23/16 10:45 08/24/16 03:24 08/23/16 11:55 Octreotide Acetate/Sodium Chloride (SandoSTATIN INJ/ NS 500 ml Inj) 500.5 ml @ 50 mls/hr Q10H IV 08/23/16 10:45 08/23/16 22:30 Naloxone HCl (Narcan Inj) 0.4 mg UNSCH PRN IV SEE LABEL COMMENTS 08/23/16 11:15 Pantoprazole Sodium 40 mg 40 mg Q12H IV PUSH 08/23/16 18:00 08/23/16 22:40 Sodium Chloride (NS 250 ml Inj) 250 ml @ 15 mls/hr ONCE ONCE IV 08/23/16 17:30 08/24/16 10:09 08/23/16 17:51 Miscellaneous Information ALL NURSING DEPARTME... UNSCH PRN XX SEE LABEL COMMENTS 08/23/16 19:30 08/24/16 19:29 Sodium Chloride (NS 1000 ml Inj) 1,000 ml @ 84 mls/hr [id number] IV 08/23/16 19:33 08/23/16 19:33 IV Flush (NS Flush) 2 ml UNSCH PRN IV FLUSH FLUSH AFTER USING IV ACCESS 08/23/16 19:45 IV Flush (NS Flush) 2 ml BID IV FLUSH 08/23/16 21:00 08/23/16 21:00 Acetaminophen (Tylenol) 650 mg Q6H PRN PO PAIN 1-10 AND/OR FEVER >101F 08/23/16 19:45 Oxycodone/ Acetaminophen (Percocet 5-325 Mg) 1 tab Q4H PRN PO PAIN SCALE 1 TO 5 08/23/16 19:45 Morphine Sulfate (Morphine Inj) 2 mg Q2H PRN IV PAIN SCALE 6 TO 10 08/23/16 19:45 Lorazepam (Ativan Inj) 2 mg Q4H PRN IV Agitation/Sedation 08/23/16 19:45 Ondansetron HCl (Zofran Inj) 4 mg Q6H PRN IV NAUSEA OR VOMITING 08/23/16 19:45 Metoclopramide HCl (Reglan Inj) 10 mg Q6H PRN IV NAUSEA OR VOMITING 08/23/16 19:45 Zolpidem Tartrate (Ambien) 5 mg HS PRN PO INSOMNIA 08/23/16 19:45 Miscellaneous Information 1 [id number] XX 08/23/16 19:45 08/23/16 19:45 Chlorhexidine Gluconate (Chlorhexidine 2% Cloth) 3 pack Taper DAILY@04 TOP 08/24/16 04:00 08/20/17 03:59 Chlorhexidine Gluconate (Chlorhexidine 2% Cloth) 3 pack UNSCH PRN TOP HYGIENIC CARE 08/23/16 19:45 Family History Noncontributory Social History Negative 3 Physical Exam Vital Signs Vital Signs Date Time Temp Pulse Resp B/P Pulse Ox O2 Delivery O2 Flow Rate FiO2 08/23/16 21:00 98.9 90 16 133/66 08/23/16 20:00 98.9 83 16 110/58 08/23/16 20:00 98.9 83 16 110/58 97 Nasal Cannula 08/23/16 19:45 81 16 116/58 97 Nasal Cannula 08/23/16 19:30 81 16 127/62 97 Nasal Cannula 08/23/16 19:15 98.1 84 15 113/59 08/23/16 19:15 98.1 84 15 113/59 94 Nasal Cannula 08/23/16 19:00 98.1 94 17 121/54 91 Nasal Cannula 08/23/16 18:05 83 18 146/94 100 Nasal Cannula 2 08/23/16 17:29 97.6 81 18 159/65 100 Nasal Cannula 2 08/23/16 17:29 18 08/23/16 16:35 97.6 80 18 147/65 100 Nasal Cannula 2 08/23/16 16:35 97.6 80 18 147/65 100 Nasal Cannula 2 08/23/16 16:20 97.6 78 18 124/61 99 Nasal Cannula 2 08/23/16 15:50 79 18 115/50 100 Nasal Cannula 2 08/23/16 13:41 97 16 104/53 98 Nasal Cannula 4 08/23/16 13:11 71 16 110/55 100 Nasal Cannula 4 08/23/16 12:35 72 18 116/54 100 Nasal Cannula 4 08/23/16 12:03 97.6 73 18 107/52 100 Nasal Cannula 4 08/23/16 11:54 97.7 86 18 94/55 98 Nasal Cannula 4 08/23/16 11:50 97.7 77 18 94/55 95 Nasal Cannula 4 08/23/16 11:07 75 18 93/51 100 08/23/16 09:54 98.8 86 22 98/46 99 Physical Exam GENERAL: Well-nourished, well-developed patient. SKIN: Warm and dry. HEAD: Normocephalic. EYES: No scleral icterus. No injection or drainage. NECK: Supple, trachea midline. No JVD or lymphadenopathy. CARDIOVASCULAR: Regular rate and rhythm without murmurs, gallops, or rubs. RESPIRATORY: Breath sounds equal bilaterally. No accessory muscle use. GASTROINTESTINAL: Abdomen soft, non-tender, nondistended. MUSCULOSKELETAL: No cyanosis, or edema. BACK: Nontender without obvious deformity. No CVA tenderness. Laboratory Laboratory Tests Test 08/23/16 08/23/16 08/23/16 08/23/16 10:10 10:11 10:34 17:21 White Blood Count 9.5 Red Blood Count 2.60 Hemoglobin 7.5 Hematocrit 23.0 Mean Corpuscular Volume 88.6 Mean Corpuscular Hemoglobin 28.9 Mean Corpuscular Hemoglobin 32.6 Concent Red Cell Distribution Width 17.0 Platelet Count 345 Mean Platelet Volume 8.1 Neutrophils (%) (Auto) 51.7 Lymphocytes (%) (Auto) 36.2 Monocytes (%) (Auto) 7.8 Eosinophils (%) (Auto) 3.5 Basophils (%) (Auto) 0.8 Neutrophils # (Auto) 4.9 Lymphocytes # (Auto) 3.4 Monocytes # (Auto) 0.7 Eosinophils # (Auto) 0.3 Basophils # (Auto) 0.1 CBC Comment DIFF FINAL Differential Comment Prothrombin Time 65.4 Prothromb Time International 5.5 Ratio Activated Partial 36.6 Thromboplast Time Sodium Level 144 Potassium Level 4.7 Chloride Level 109 Carbon Dioxide Level 21.8 Anion Gap 13 Blood Urea Nitrogen 44 Creatinine 1.47 Estimat Glomerular Filtration 34 Rate Random Glucose 188 Calcium Level 8.0 Total Bilirubin 0.3 Aspartate Amino Transf 16 (AST/SGOT) Alanine Aminotransferase 16 (ALT/SGPT) Alkaline Phosphatase 88 Total Protein 5.7 Albumin 3.0 Lipase 140 Digoxin Level 0.6 Blood Type O POSITIVE Antibody Screen NEGATIVE Crossmatch Leukocyte-Reduced Red Blood Cells Blood Bank Comment Test 08/23/16 19:33 Total Bilirubin 0.2 Direct Bilirubin 0.1 Indirect Bilirubin 0.1 Aspartate Amino Transf 16 (AST/SGOT) Alanine Aminotransferase 16 (ALT/SGPT) Alkaline Phosphatase 88 Total Protein 5.8 Albumin 3.0 Result Diagram: 08/23/16 1010 08/23/16 1010 Assessment and Plan Problem List: (1) Aphasia ICD Code: R47.01 Status: Chronic (2) Anemia ICD Code: D64.9 Status: Acute (3) Atrial fibrillation ICD Code: I48.91 Status: Chronic (4) Bleeding on Coumadin ICD Code: R58 Status: Acute (5) Acute blood loss anemia ICD Code: D62 Status: Acute (6) Upper GI bleed ICD Code: K92.2 Status: Acute Assessment and Plan Upper GI bleed - Admit to ICU - Protonix drip - Endoscopic evaluation per GI - Reverse Coumadin Atrial fibrillation - No anticoagulation - Continue home dose of digoxin - Continue rate control Coagulopathy - Patient on Coumadin - Consider Kcentra if continues to bleed Anxiety - Lexapro - Mirtazapine DVT GI prophylaxis Teds, SCDs Protonix Critical Care: The total critical care time was 35 minutes. Time to perform other separately billable procedures was not included in the critical care time. Problem Qualifiers (1) Anemia: Qualified Code: D64.9 - Anemia, unspecified type (2) Atrial fibrillation: Qualified Code: I48.0 - Paroxysmal atrial fibrillation Bryon Bui MD Aug 23, 2016 22:19
[2016-08-23] MEDS: PANTOPRAZOLE SODIUM 40 MG VIAL IV PUSH SCH (22:40)
[2016-08-23] MEDS: ONDANSETRON HCL 4 MG/2 ML VIAL IV PRN (23:46)
[2016-08-23] MEDS: MORPHINE SULFATE 4 MG/ML INJ IV PRN (23:48)
[2016-08-23] MEDS: METOCLOPRAMIDE HCL 10 MG/2 ML VIAL IV PRN (23:50)
[2016-08-24 02:07] LABS: AUTOMATED NEUTROPHIL # 9.5 TH/MM3 (1.8-7.7); BASOPHIL % 0.1 % (0.0-2.0); HEMATOCRIT 28.4 % (35.0-46.0); LYMPH % 4.7 % (9.0-44.0); LYMPHOCYTE # 0.5 TH/MM3 (1.0-4.8); MEAN CELL VOLUME 84.7 FL (80.0-100.0); MEAN CORPUSCULAR HEMOGLOBIN 29.6 PG (27.0-34.0); MEAN CORPUSCULAR HGB CONC 34.9 % (32.0-36.0); NEUT % 90.2 % (16.0-70.0); PLATELET COUNT 153 TH/MM3 (150-450); RED BLOOD COUNT 3.36 MIL/MM3 (4.00-5.30); RED CELL DISTRIBUTION WIDTH 18.7 % (11.6-17.2); WHITE BLOOD COUNT 10.5 TH/MM3 (4.0-11.0)
[2016-08-24 02:08] LABS: HEMO FLAGS AUTO DIFF
[2016-08-24 02:27] LABS: INTERNATIONAL NORMALIZED RATIO 1.1 RATIO; PROTHROMBIN TIME - PATIENT 11.9 SEC (9.8-11.6)
[2016-08-24 02:33] LABS: ALKALINE PHOSPHATASE 151 U/L (45-117); ALT (GPT) 23 U/L (10-53); ANION GAP 5 MEQ/L (5-15); AST (GOT) 22 U/L (15-37); BICARBONATE 27.8 MEQ/L (21.0-32.0); BLOOD UREA NITROGEN 38 MG/DL (7-18); CHLORIDE 113 MEQ/L (98-107); GLOMERULAR FILTRATION RATE 46 ML/MIN (>89); MAGNESIUM 2.1 MG/DL (1.5-2.5); POTASSIUM 3.8 MEQ/L (3.5-5.1); SODIUM (NA) 146 MEQ/L (136-145); TOTAL BILIRUBIN ADULT 0.8 MG/DL (0.2-1.0)
[2016-08-24 03:57] LABS: BANDS 33 % (0-6); METAMYELOCYTES 1 % (0-1); NEUTROPHIL # MANUAL DIFF 9.2 TH/MM3 (1.8-7.7); PLATELET ESTIMATE SMEAR NORMAL (NORMAL); PLATELET MORPHOLOGY NORMAL (NORMAL); POLYS (SEG NEUTROPHILS) 54 % (16-70); SCAN/DIFF FINAL DIFF MANUAL; WBC DIFF SAMPLE 100
[2016-08-24 03:58] LABS: TOXIC GRANULATION 1+ (NORMAL)
[2016-08-24] MEDS ORDERED: CHLORHEXIDINE GLUCONATE 2 % 1 PACK (2 CLOTHS) TOP SCH (04:00)
--- NOTE | 2016-08-24 06:46 | EKG ---
Date Performed: 08/23/2016 Time Performed: 10:00:58 PTAGE: 76 years EKG: Sinus rhythm NORMAL ECG INTERPRETATION BASED ON A DEFAULT AGE OF 40 YEARS PREVIOUS TRACING : 02/23/2016 17.50 Compared to prior tracing no significant change DOCTOR: David Castro Interpretating Date/Time 08/24/2016 06:43:47
[2016-08-24 07:12] LABS: AUTOMATED NEUTROPHIL # 7.6 TH/MM3 (1.8-7.7); BASOPHIL % 0.2 % (0.0-2.0); HEMATOCRIT 27.2 % (35.0-46.0); HEMO FLAGS DIFF FINAL; LYMPH % 7.6 % (9.0-44.0); LYMPHOCYTE # 0.7 TH/MM3 (1.0-4.8); MEAN CELL VOLUME 84.6 FL (80.0-100.0); MEAN CORPUSCULAR HEMOGLOBIN 29.5 PG (27.0-34.0); MEAN CORPUSCULAR HGB CONC 34.8 % (32.0-36.0); MONO % 7.9 % (0.0-8.0); NEUT % 84.3 % (16.0-70.0); PLATELET COUNT 149 TH/MM3 (150-450); RED BLOOD COUNT 3.22 MIL/MM3 (4.00-5.30); RED CELL DISTRIBUTION WIDTH 19.3 % (11.6-17.2)
[2016-08-24 07:26] LABS: ALT (GPT) 19 U/L (10-53); ANION GAP 8 MEQ/L (5-15); AST (GOT) 19 U/L (15-37); BICARBONATE 24.9 MEQ/L (21.0-32.0); BLOOD UREA NITROGEN 33 MG/DL (7-18); CHLORIDE 115 MEQ/L (98-107); GLOMERULAR FILTRATION RATE 54 ML/MIN (>89); POTASSIUM 3.8 MEQ/L (3.5-5.1); SODIUM (NA) 148 MEQ/L (136-145)
[2016-08-24 07:27] LABS: INTERNATIONAL NORMALIZED RATIO 1.1 RATIO; PROTHROMBIN TIME - PATIENT 11.8 SEC (9.8-11.6)
[2016-08-24 07:29] LABS: ALKALINE PHOSPHATASE 131 U/L (45-117); TOTAL BILIRUBIN ADULT 0.7 MG/DL (0.2-1.0)
[2016-08-24] MEDS ORDERED: MORPHINE SULFATE 4 MG/ML INJ ONE (07:36)
[2016-08-24] MEDS: PANTOPRAZOLE SODIUM 40 MG VIAL IV PUSH SCH ×2 (08:10→17:55)
[2016-08-24 08:30] VITALS: BP 138/63; PULSE 78; RESP 16; TEMP 98.3; O2SAT 96
[2016-08-24] MEDS ORDERED: CHLORHEXIDINE GLUCONATE 2 % 1 PACK (2 CLOTHS)(extra cloths) TOP PRN (08:45)
[2016-08-24] MEDS ORDERED: ESCITALOPRAM OXALATE 10 MG TAB PO SCH (09:00)
[2016-08-24] MEDS: oxyCODONE/ACETAMINOPHEN 5 MG/325 MG TAB PO PRN (09:07)
[2016-08-24] MEDS: OCTREOTIDE INJ 500 MCG in SODIUM CHLORID 0.9% 500 ML INJ 500 ML IV SCH (09:08)
[2016-08-24] MEDS: SODIUM CHLORIDE 0.9% FLUSH 5 ML FLUSH IV FLUSH SCH ×2 (09:08→21:00)
[2016-08-24] MEDS: SODIUM CHLOR 0.9% 1000 ML INJ 1,000 ML IV SCH ×2 (09:08→19:23)
--- NOTE | 2016-08-24 10:28 | HHI.GIFU ---
Subjective Remarks Seen in PACU. Pt resting in bed in no distress. Nurse reports that she had 2 bloody bowel movements overnight with dark red blood. She has not had any further vomiting. She does have diffuse abdominal tenderness. (Felipa Walker) Objective Vitals I&O Vital Signs Date Time Temp Pulse Resp B/P Pulse Ox O2 Delivery O2 Flow Rate FiO2 08/24/16 08:00 98.4 84 13 116/55 96 Nasal Cannula 3 08/24/16 07:00 86 15 124/57 96 Nasal Cannula 3 08/24/16 06:30 84 14 124/58 96 Nasal Cannula 3 08/24/16 05:00 86 15 123/57 97 Nasal Cannula 3 08/24/16 04:00 98.5 87 14 118/57 97 Nasal Cannula 3 08/24/16 03:00 88 16 119/60 97 Nasal Cannula 3 08/24/16 02:00 86 15 120/56 96 Nasal Cannula 3 08/24/16 01:00 95 14 136/71 98 Nasal Cannula 3 08/24/16 00:00 98.5 98 15 124/62 98 Nasal Cannula 3 08/24/16 00:00 14 08/23/16 23:00 96 15 130/67 97 Nasal Cannula 3 08/23/16 22:00 95 17 136/69 97 Nasal Cannula 3 08/23/16 21:00 98.9 90 15 133/66 97 Nasal Cannula 3 08/23/16 21:00 98.9 90 16 133/66 08/23/16 20:00 98.9 83 16 110/58 08/23/16 20:00 98.9 83 16 110/58 97 Nasal Cannula 3 08/23/16 19:45 81 16 116/58 97 Nasal Cannula 3 08/23/16 19:30 81 16 127/62 97 Nasal Cannula 3 08/23/16 19:15 98.1 84 15 113/59 08/23/16 19:15 98.1 84 15 113/59 94 Nasal Cannula 3 08/23/16 19:00 98.1 94 17 121/54 91 Nasal Cannula 3 08/23/16 18:05 83 18 146/94 100 Nasal Cannula 2 08/23/16 17:29 97.6 81 18 159/65 100 Nasal Cannula 2 08/23/16 17:29 18 08/23/16 16:35 97.6 80 18 147/65 100 Nasal Cannula 2 08/23/16 16:35 97.6 80 18 147/65 100 Nasal Cannula 2 08/23/16 16:20 97.6 78 18 124/61 99 Nasal Cannula 2 08/23/16 15:50 79 18 115/50 100 Nasal Cannula 2 08/23/16 13:41 97 16 104/53 98 Nasal Cannula 4 08/23/16 13:11 71 16 110/55 100 Nasal Cannula 4 08/23/16 12:35 72 18 116/54 100 Nasal Cannula 4 08/23/16 12:03 97.6 73 18 107/52 100 Nasal Cannula 4 08/23/16 11:54 97.7 86 18 94/55 98 Nasal Cannula 4 08/23/16 11:50 97.7 77 18 94/55 95 Nasal Cannula 4 08/23/16 11:07 75 18 93/51 100 I/O 08/23/16 08/23/16 08/23/16 08/24/16 08/24/16 08/24/16 07:00 15:00 23:00 07:00 15:00 23:00 Intake Total 800 ml 1402 ml 575 ml Output Total 550 ml 270 ml 1400 ml 500 ml Balance -550 ml 530 ml 2 ml 75 ml Intake Oral 0 ml 50 ml 0 ml Other 800 ml 1352 ml 575 ml Output Urine Total 250 ml 1200 ml 500 ml Stool Total 200 ml Emesis 550 ml Estimated Blood Loss 20 ml 0 ml 0 ml # Bowel Movements 2 Laboratory Laboratory Tests Test 08/23/16 08/23/16 08/23/16 08/24/16 10:34 17:21 19:33 01:40 Crossmatch Leukocyte-Reduced Red Blood Cells Blood Bank Comment Total Bilirubin 0.2 0.8 Direct Bilirubin 0.1 Indirect Bilirubin 0.1 Aspartate Amino Transf 16 22 (AST/SGOT) Alanine Aminotransferase 16 23 (ALT/SGPT) Alkaline Phosphatase 88 151 Total Protein 5.8 6.5 Albumin 3.0 3.2 White Blood Count 10.5 Red Blood Count 3.36 Hemoglobin 9.9 Hematocrit 28.4 Mean Corpuscular Volume 84.7 Mean Corpuscular Hemoglobin 29.6 Mean Corpuscular Hemoglobin 34.9 Concent Red Cell Distribution Width 18.7 Platelet Count 153 Mean Platelet Volume 8.1 Neutrophils (%) (Auto) 90.2 Lymphocytes (%) (Auto) 4.7 Monocytes (%) (Auto) 5.0 Eosinophils (%) (Auto) 0.0 Basophils (%) (Auto) 0.1 Neutrophils # (Auto) 9.5 Lymphocytes # (Auto) 0.5 Monocytes # (Auto) 0.5 Eosinophils # (Auto) 0.0 Basophils # (Auto) 0.0 CBC Comment AUTO DIFF Differential Total Cells 100 Counted Neutrophils % (Manual) 54 Band Neutrophils % 33 Lymphocytes % 9 Monocytes % 3 Neutrophils # (Manual) 9.2 Metamyelocytes 1 Differential Comment FINAL DIFF MANUAL Toxic Granulation 1+ Platelet Estimate NORMAL Platelet Morphology Comment NORMAL Prothrombin Time 11.9 Prothromb Time International 1.1 Ratio Sodium Level 146 Potassium Level 3.8 Chloride Level 113 Carbon Dioxide Level 27.8 Anion Gap 5 Blood Urea Nitrogen 38 Creatinine 1.15 Estimat Glomerular Filtration 46 Rate Random Glucose 164 Calcium Level 7.5 Phosphorus Level 3.5 Magnesium Level 2.1 Test 08/24/16 06:28 White Blood Count 9.0 Red Blood Count 3.22 Hemoglobin 9.5 Hematocrit 27.2 Mean Corpuscular Volume 84.6 Mean Corpuscular Hemoglobin 29.5 Mean Corpuscular Hemoglobin 34.8 Concent Red Cell Distribution Width 19.3 Platelet Count 149 Mean Platelet Volume 8.1 Neutrophils (%) (Auto) 84.3 Lymphocytes (%) (Auto) 7.6 Monocytes (%) (Auto) 7.9 Eosinophils (%) (Auto) 0.0 Basophils (%) (Auto) 0.2 Neutrophils # (Auto) 7.6 Lymphocytes # (Auto) 0.7 Monocytes # (Auto) 0.7 Eosinophils # (Auto) 0.0 Basophils # (Auto) 0.0 CBC Comment DIFF FINAL Differential Comment Prothrombin Time 11.8 Prothromb Time International 1.1 Ratio Sodium Level 148 Potassium Level 3.8 Chloride Level 115 Carbon Dioxide Level 24.9 Anion Gap 8 Blood Urea Nitrogen 33 Creatinine 1.00 Estimat Glomerular Filtration 54 Rate Random Glucose 126 Calcium Level 7.7 Total Bilirubin 0.7 Aspartate Amino Transf 19 (AST/SGOT) Alanine Aminotransferase 19 (ALT/SGPT) Alkaline Phosphatase 131 Total Protein 5.8 Albumin 2.8 Physical Exam HEENT: Normocephalic; atraumatic; no jaundice. CHEST: CTA, diminished CARDIAC: RRR ABDOMEN: Soft, nondistended, mild to moderate diffuse tenderness; no hepatosplenomegaly; bowel sounds are present in all four quadrants. EXTREMITIES: No clubbing, cyanosis, or edema. SKIN: Generalized pallor. DIE HOLDER: No focal deficits; lethargic and oriented times three. (Felipa Walker) Assessment and Plan Plan ASSESSMENT: - Upper GI BLeeding. S/P EGD (08/23/16)---> Recent upper GI bleed, hiatal hernia , otherwise unremarkable EGD possibly suggestive of a dieulafoy. Pt has not had any further hematemesis, but did have 2 bloody stools with dark red blood overnight. However, HH has remained stable. Will get SBFT, Monitor HH q6h x 3. Notify GI of active bleeding. Protonix. Gtt. Clear liquids. - Anemia, acute blood loss. S/P 2 units PRBC. HH 9.5/27.2. - Coagulopathy. S/P 6 units PRBC. INR 1.1 PLAN: - Clear liquids - SBFT - HH q6h x3 - Transfuse as necessary - Protonix Gtt - Notify GI of active bleeding. - Probable EGD on Saturday to reassess if patient still in the hospital, otherwise follow up with GI in the office. - Pt seen and examined by Dr. Nicholas and myself and this note is written on his behalf (Felipa Walker) Physician Comments Patient seen and examined Agree with above Continue with current supportive care Monitor labs Await small bowel follow-through (Hector Nicholas MD) Felipa Walker Aug 24, 2016 10:28 Hector Nicholas MD Aug 24, 2016 16:56
--- NOTE | 2016-08-24 10:29 | MB ---
cc: JACOBO PRINCE ALAN S. MD O'DONNELL,NANI Rossi D.O. DATE OF CONSULTATION 08/24/[address] Nani Conklin [place] [employer] Dr. Mike Waggoner REASON FOR CONSULTATION GI bleed on Coumadin HISTORY OF PRESENT ILLNESS Danielle Turcios is a 76-year-old female who presented to [place] emergency room on August 23, 2016 due to hematemesis and melanoma. On arrival, she was found to have an INR of 5.5 and a hemoglobin of 7.5. It appears that the patient has had GI bleeds in the past and problems with anemia. She has had multiple endoscopies including a capsule endoscopy with no real explanation found other than some diverticulosis and gastritis. The patient's episode started the day before and she was her normal self and then she started vomiting up some blood. Because of the events, she was taken for a EGD yesterday by Dr. Nicholas which at that time no source of bleeding was found and she was just found to have a large hiatal hernia. There is a consideration that this may be from a Dieulafoy's lesion. In seeing her in the PACU, she does have an underlying expressive aphasia, but can answer simple questions. She is currently lying comfortably and hemodynamically stable. PAST MEDICAL HISTORY 1. Hypertension 2. Hyperlipidemia 3. History of CVA x3. 4. Paroxysmal atrial fibrillation 5. Iron-deficiency anemia 6. History of seizures. 7. History of lung cancer 8. History of colon cancer. 9. GERD 10. Multiple concerns for GI bleeds in the past. PAST SURGICAL HISTORY 1. Colon resection 2. Left pneumonectomy 3. Multiple endoscopies 4. Abdominal hysterectomy 5. Left lower extremity fracture with zuleyka 6. Recent endoscopy with cauterization of AVM and biopsy (2015) ALLERGIES 1. Iron 2. Lipitor 3. NSAIDs 4. Cardizem MEDICATIONS 1. Coumadin 3 mg daily to keep INR in the range of two to three 2. Escitalopram 10 mg daily 3. Mirtazapine 15 mg every night 4. Digoxin 0.125 mg every other day 5. Norvasc 10 mg daily 6. Crestor 10 mg daily 7. Ranitidine 300 mg daily 8. Montelukast 10 mg every night 9. Lasix 20 mg daily 10. Omeprazole 20 mg daily FAMILY HISTORY Denies premature coronary artery disease or sudden cardiac within the family. SOCIAL HISTORY Currently lives with one of her daughters. Denies tobacco, alcohol or drug abuse. REVIEW OF SYSTEMS 14 systems were reviewed in the history and physical as above pertinent positives and negatives as above, otherwise negative. PHYSICAL EXAMINATION VITAL SIGNS: Temperature 98.4, heart rate 84, blood pressure 116/55, respirations 13, pulse ox 96% on three liters. GENERAL: The patient appears well in no acute distress, alert and awake. Extraocular muscles intact. Mucous membranes moist. NECK: Supple. No JVD at 45 degrees. No carotid bruits heard bilaterally. Carotid upstroke is brisk in nature. HEART: Regular rate and rhythm. Positive first and second heart sounds with no murmurs, gallops or rubs. PMI is difficult to the determine, but does not appear displaced. LUNGS: Clear to auscultation bilaterally. No wheezes, rales or rhonchi. ABDOMEN: Soft, nontender and nondistended. No organomegaly noted. EXTREMITIES: Show no clubbing, cyanosis or edema. Femoral and distal pulses intact bilaterally. NEUROLOGIC: No focal deficits. SKIN: Warm, dry and intact. OSTEOPATHICALLY: No kyphoscoliosis, lordosis or paraspinal tender points. LABORATORY FINDINGS Hemoglobin 7.5, receiving 2 units, currently 9.5, hematocrit 27.2, platelets 149. INR originally 5.5 decreasing to 1.1 after four units of FFP and 10 mg IV vitamin K. Potassium 3.8, BUN 33, creatinine 1.0. Electrocardiogram (August 23, 2016 at 10:00) normal sinus rhythm. IMPRESSION 1. Possible upper GI bleed with supratherapeutic INR. 2. Supratherapeutic INR from unknown cause. 3. Paroxysmal atrial fibrillation. 4. Multiple episodes of possible GI bleed with anemia. 5. History of hypertension. 6. History of multiple strokes with expressive aphasia. RECOMMENDATIONS 1. At this time, agree with keeping Danielle off anticoagulation. 2. She has already undergone an EGD from GI without a significant cause for her bleed. Further workup per GI. Would hold off on anticoagulation until workup is complete. 3. Difficult to place her back on anticoagulation at this time post hospitalization due to multiple GI bleeds. 4. Consideration could be made for possible left atrial occlusive device once discharged in the outpatient setting. We will discuss with Dr. Waggoner about her future direction but technically she should be on Coumadin post watchman therapy for short period of time. Thank you for allowing me to see Danielle Turcios. If there are any questions, please do not hesitate to call. Jacobo Prince DO VGP/DJL /9:37 AM /10:07 AM
[2016-08-24 11:40] VITALS: O2SAT 98
--- NOTE | 2016-08-24 11:47 | HHI.PR ---
Subjective Interval History Alert, aphasic but somewhat verbal, appears to deny any complaints Review of Systems Constitutional Constitutional Remarks General weakness, aphasia, no pain, 10 systems reviewed otherwise negative Vitals/Results Intake & Output 08/23/16 08/23/16 08/24/16 15:00 23:00 07:00 Intake Total 800 ml 1402 ml Output Total 550 ml 270 ml 1400 ml Balance -550 ml 530 ml 2 ml Intake Oral 0 ml 50 ml Other 800 ml 1352 ml Output Urine Total 250 ml 1200 ml Stool Total 200 ml Emesis 550 ml Estimated Blood Loss 20 ml 0 ml # Bowel Movements 2 Vital Signs Vital Signs Date Time Temp Pulse Resp B/P Pulse Ox O2 Delivery O2 Flow Rate FiO2 08/24/16 08:30 98.3 08/24/16 08:00 98.4 84 13 116/55 96 Nasal Cannula 3 08/24/16 07:00 86 15 124/57 96 Nasal Cannula 3 08/24/16 06:30 84 14 124/58 96 Nasal Cannula 3 08/24/16 05:00 86 15 123/57 97 Nasal Cannula 3 08/24/16 04:00 98.5 87 14 118/57 97 Nasal Cannula 3 08/24/16 03:00 88 16 119/60 97 Nasal Cannula 3 08/24/16 02:00 86 15 120/56 96 Nasal Cannula 3 08/24/16 01:00 95 14 136/71 98 Nasal Cannula 3 08/24/16 00:00 98.5 98 15 124/62 98 Nasal Cannula 3 08/24/16 00:00 14 08/23/16 23:00 96 15 130/67 97 Nasal Cannula 3 08/23/16 22:00 95 17 136/69 97 Nasal Cannula 3 08/23/16 21:00 98.9 90 15 133/66 97 Nasal Cannula 3 08/23/16 21:00 98.9 90 16 133/66 08/23/16 20:00 98.9 83 16 110/58 08/23/16 20:00 98.9 83 16 110/58 97 Nasal Cannula 3 08/23/16 19:45 81 16 116/58 97 Nasal Cannula 3 08/23/16 19:30 81 16 127/62 97 Nasal Cannula 3 08/23/16 19:15 98.1 84 15 113/59 08/23/16 19:15 98.1 84 15 113/59 94 Nasal Cannula 3 08/23/16 19:00 98.1 94 17 121/54 91 Nasal Cannula 3 08/23/16 18:05 83 18 146/94 100 Nasal Cannula 2 08/23/16 17:29 97.6 81 18 159/65 100 Nasal Cannula 2 08/23/16 17:29 18 08/23/16 16:35 97.6 80 18 147/65 100 Nasal Cannula 2 08/23/16 16:35 97.6 80 18 147/65 100 Nasal Cannula 2 08/23/16 16:20 97.6 78 18 124/61 99 Nasal Cannula 2 08/23/16 15:50 79 18 115/50 100 Nasal Cannula 2 08/23/16 13:41 97 16 104/53 98 Nasal Cannula 4 08/23/16 13:11 71 16 110/55 100 Nasal Cannula 4 08/23/16 12:35 72 18 116/54 100 Nasal Cannula 4 08/23/16 12:03 97.6 73 18 107/52 100 Nasal Cannula 4 08/23/16 11:54 97.7 86 18 94/55 98 Nasal Cannula 4 08/23/16 11:50 97.7 77 18 94/55 95 Nasal Cannula 4 CBC/BMP: 08/24/16 0628 08/24/16 0628 Lab Results Laboratory Tests Test 08/23/16 08/23/16 08/24/16 08/24/16 17:21 19:33 01:40 06:28 Blood Bank Comment Total Bilirubin 0.2 MG/DL 0.8 MG/DL 0.7 MG/DL Direct Bilirubin 0.1 MG/DL Indirect Bilirubin 0.1 MG/DL Aspartate Amino Transf 16 U/L 22 U/L 19 U/L (AST/SGOT) Alanine Aminotransferase 16 U/L 23 U/L 19 U/L (ALT/SGPT) Alkaline Phosphatase 88 U/L 151 U/L 131 U/L Total Protein 5.8 GM/DL 6.5 GM/DL 5.8 GM/DL Albumin 3.0 GM/DL 3.2 GM/DL 2.8 GM/DL White Blood Count 10.5 TH/MM3 9.0 TH/MM3 Red Blood Count 3.36 MIL/MM3 3.22 MIL/MM3 Hemoglobin 9.9 GM/DL 9.5 GM/DL Hematocrit 28.4 % 27.2 % Mean Corpuscular Volume 84.7 FL 84.6 FL Mean Corpuscular Hemoglobin 29.6 PG 29.5 PG Mean Corpuscular Hemoglobin 34.9 % 34.8 % Concent Red Cell Distribution Width 18.7 % 19.3 % Platelet Count 153 TH/MM3 149 TH/MM3 Mean Platelet Volume 8.1 FL 8.1 FL Neutrophils (%) (Auto) 90.2 % 84.3 % Lymphocytes (%) (Auto) 4.7 % 7.6 % Monocytes (%) (Auto) 5.0 % 7.9 % Eosinophils (%) (Auto) 0.0 % 0.0 % Basophils (%) (Auto) 0.1 % 0.2 % Neutrophils # (Auto) 9.5 TH/MM3 7.6 TH/MM3 Lymphocytes # (Auto) 0.5 TH/MM3 0.7 TH/MM3 Monocytes # (Auto) 0.5 TH/MM3 0.7 TH/MM3 Eosinophils # (Auto) 0.0 TH/MM3 0.0 TH/MM3 Basophils # (Auto) 0.0 TH/MM3 0.0 TH/MM3 CBC Comment AUTO DIFF DIFF FINAL Differential Total Cells 100 Counted Neutrophils % (Manual) 54 % Band Neutrophils % 33 % Lymphocytes % 9 % Monocytes % 3 % Neutrophils # (Manual) 9.2 TH/MM3 Metamyelocytes 1 % Differential Comment FINAL DIFF MANUAL Toxic Granulation 1+ Platelet Estimate NORMAL Platelet Morphology Comment NORMAL Prothrombin Time 11.9 SEC 11.8 SEC Prothromb Time International 1.1 RATIO 1.1 RATIO Ratio Sodium Level 146 MEQ/L 148 MEQ/L Potassium Level 3.8 MEQ/L 3.8 MEQ/L Chloride Level 113 MEQ/L 115 MEQ/L Carbon Dioxide Level 27.8 MEQ/L 24.9 MEQ/L Anion Gap 5 MEQ/L 8 MEQ/L Blood Urea Nitrogen 38 MG/DL 33 MG/DL Creatinine 1.15 MG/DL 1.00 MG/DL Estimat Glomerular Filtration 46 ML/MIN 54 ML/MIN Rate Random Glucose 164 MG/DL 126 MG/DL Calcium Level 7.5 MG/DL 7.7 MG/DL Phosphorus Level 3.5 MG/DL Magnesium Level 2.1 MG/DL Physical Exam General General Appearance: Comfortable, Malnourished (a nurse on the bed 6 Chambers) Eyes Eye Exam: Pupils Reactive Ears & Nose Ears & Nose Exam: Nasal Mucosa [place] Throat Throat Exam: Oral Mucosa [place] & Moist Neck Neck Exam: Trachea Midline Pulmonary Resp Exam: Breath Sounds Equal, No Distress Cardiology CV Exam: Normal Sinus Rhythm, Good Perfusion Gastrointestinal/Abdomen GI Exam: Non-Tender, Bowel Sounds Present Musculoskeletal MS Exam: Normal Tone Integumentary Skin Exam: Warm, Dry Neurologic Neuro Exam: Awake Psychiatric Psych Exam: Appropriate Responses VTE Prophylaxis VTE Prophylaxis Device: SCDs Assessment/Plan Assessment/Plan Assessment Admitted with hemorrhagic shock, resolved Acute anemia of acute upper GI bleed, status post transfusion Coagulopathy secondary to Coumadin, resolved, status post fresh frozen plasma and vitamin K Upper endoscopy done on August 24, 2016 History of stroke with aphasia Atrial fibrillation Hypertension Reflux Renal disease Management Transfer to telemetry No anticoagulation at this time Follow CBC Follow renal function Cardiology following GI following IV Protonix Discussed with daughter Discussed with nurse Lincoln Newsome MD Aug 24, 2016 11:47
[2016-08-24] MEDS ORDERED: DIATRIZOATE MEGLUM/DIATRIZOATE SOD 120 ML BTL (for RAD DIAG) PO ONE (12:00)
[2016-08-24 14:00] VITALS: PULSE 72
[2016-08-24 15:29] VITALS: BP 160/69; PULSE 88; RESP 22; TEMP 94.5; O2SAT 95
--- NOTE | 2016-08-24 18:06 | RADRPT ---
EXAM DATE/TIME: 08/24/2016 12:04 [facility] COMPARISON: No previous studies available for comparison. INDICATIONS : Anemia. Nausea and vomiting. FLUORO TIME: ? minutes IMAGE COUNT: CONTRAST: Gastroann marie IMAGING TIME(S): 15 min, 30 min, 45 min, 1 hr, 1.5 hrs, 2.5 hrs3 hrs. MEDICAL HISTORY : Seizures. Stroke Hypertension.Colon cancer. Lung cancer SURGICAL HISTORY : Hysterectomy. Ozzie LLE. ENCOUNTER: Initial ACUITY: 1 day PAIN SCORE: 0/10 LOCATION: Bilateral Abdomen. FINDINGS: Preliminary film shows evidence of left pneumonectomy. Moderate sized hiatal hernia. Prominent gastroesophageal reflux is observed the proximal thoracic eso phagus. Possible large esophageal diverticulum is seen at the level of the aortic arch. Mild to moderate diffuse small bowel distention. No transition point. Contrast is seen within the col on on the 5 hour radiograph. No evidence of colonic distention. There is apparent diffuse mucosal irr egularity of the colon indicating possible colitis. CONCLUSION: 1. Mild to moderate diffuse small bowel distention and increased small bowel transit time. 2. Large proximal thoracic esophageal diverticulum. 3. Evaluation of the colon is somewhat limited due to to incomplete distention but the appearance is suspicious for diffuse colitis. Dontrell Lovelace MD on August 24, 2016 at 18:01 Board Certified Radiologist. This report was verified electronically.
[2016-08-24 19:04] LABS: HEMATOCRIT 30.2 % (35.0-46.0)
[2016-08-24 19:13] LABS: REVIEW FLAG FINAL
[2016-08-24 20:00] VITALS: BP 153/65; PULSE 86; RESP 18; TEMP 97.7; O2SAT 96
[2016-08-24] MEDS: MORPHINE SULFATE 4 MG/ML INJ IV PRN (22:09)
[2016-08-24] MEDS: ONDANSETRON HCL 4 MG/2 ML VIAL IV PRN (22:39)
[2016-08-25] VITALS: BP 144/64; PULSE 83; RESP 18; TEMP 97.8; O2SAT 94
[2016-08-25 00:32] LABS: HEMATOCRIT 27.2 % (35.0-46.0); REVIEW FLAG FINAL
[2016-08-25] MEDS: OCTREOTIDE INJ 500 MCG in SODIUM CHLORID 0.9% 500 ML INJ 500 ML IV SCH ×3 (02:19→22:45)
[2016-08-25] MEDS: MORPHINE SULFATE 4 MG/ML INJ IV PRN ×5 (02:23→20:22)
[2016-08-25 04:00] VITALS: BP 127/65; PULSE 81; RESP 18; TEMP 98.1; O2SAT 95
[2016-08-25] MEDS: CHLORHEXIDINE GLUCONATE 2 % 1 PACK (2 CLOTHS)(taper/protocol) TOP SCH (04:00)
[2016-08-25] MEDS: PANTOPRAZOLE SODIUM 40 MG VIAL IV PUSH SCH ×2 (06:01→18:00)
[2016-08-25] MEDS: ONDANSETRON HCL 4 MG/2 ML VIAL IV PRN (06:04)
[2016-08-25] MEDS: SODIUM CHLOR 0.9% 1000 ML INJ 1,000 ML IV SCH ×2 (06:13→18:32)
[2016-08-25 07:20] LABS: BASOPHIL % 0.4 % (0.0-2.0); EOSINOPHIL % 0.3 % (0.0-4.0); HEMATOCRIT 26.9 % (35.0-46.0); LYMPH % 8.4 % (9.0-44.0); LYMPHOCYTE # 0.6 TH/MM3 (1.0-4.8); MEAN CELL VOLUME 88.1 FL (80.0-100.0); MEAN CORPUSCULAR HEMOGLOBIN 29.1 PG (27.0-34.0); MONO % 11.1 % (0.0-8.0); NEUT % 79.8 % (16.0-70.0); PLATELET COUNT 157 TH/MM3 (150-450); RED BLOOD COUNT 3.05 MIL/MM3 (4.00-5.30); RED CELL DISTRIBUTION WIDTH 20.1 % (11.6-17.2); WHITE BLOOD COUNT 7.5 TH/MM3 (4.0-11.0)
[2016-08-25 07:47] LABS: HEMO FLAGS AUTO DIFF
[2016-08-25 08:00] VITALS: BP 134/65; PULSE 81; RESP 20; TEMP 98.4; O2SAT 94
[2016-08-25 08:06] LABS: BICARBONATE 24.1 MEQ/L (21.0-32.0); POTASSIUM 3.7 MEQ/L (3.5-5.1)
[2016-08-25] MEDS: SODIUM CHLORIDE 0.9% FLUSH 5 ML FLUSH IV FLUSH SCH ×2 (09:00→20:25)
[2016-08-25] MEDS ORDERED: DIGOXIN 0.125 MG TAB PO SCH (09:00)
--- NOTE | 2016-08-25 10:27 | HHI.PR ---
Subjective Hospital Day: 2 Subjective Remarks Abdominal pain, mid to right side, LRQ Poor historian No vomiting, tolerating clear liquids Belching No other complaints Review of Systems Constitutional Constitutional: Fatigue, Weakness Constitutional Remarks 10 point ROS done with limited exam. Positives noted, otherwise unremarkable Pulmonary Respiratory: Shortness of Breath, Wheezing (mild expiratory wheezing) GI/Abdomen GI/Abdomen Remarks Mid and right lower quadrant pain Cramping Neurologic Neurologic Remarks Poor historian Vitals/Results Intake & Output 08/24/16 08/24/16 08/25/16 15:00 23:00 07:00 Intake Total 575 ml 1432 ml 1552 ml Output Total 800 ml 600 ml 275 ml Balance -225 ml 832 ml 1277 ml Intake Oral 0 ml 360 ml 480 ml IV Total 1072 ml 1072 ml Other 575 ml Output Urine Total 800 ml 600 ml 275 ml Estimated Blood Loss 0 ml Vital Signs Vital Signs Date Time Temp Pulse Resp B/P Pulse Ox O2 Delivery O2 Flow Rate FiO2 08/25/16 08:00 98.4 81 20 134/65 94 08/25/16 04:00 98.1 81 18 127/65 95 08/25/16 00:00 97.8 83 18 144/64 94 08/24/16 20:00 97.7 86 18 153/65 96 08/24/16 15:29 94.5 88 22 160/69 95 08/24/16 14:00 72 08/24/16 11:40 98 Nasal Cannula 3.00 CBC/BMP: 08/25/16 0555 08/25/16 0555 Lab Results Laboratory Tests Test 08/24/16 08/25/16 08/25/16 18:41 00:10 05:55 Hemoglobin 9.9 GM/DL 9.1 GM/DL 8.9 GM/DL Hematocrit 30.2 % 27.2 % 26.9 % White Blood Count 7.5 TH/MM3 Red Blood Count 3.05 MIL/MM3 Mean Corpuscular Volume 88.1 FL Mean Corpuscular Hemoglobin 29.1 PG Mean Corpuscular Hemoglobin 33.0 % Concent Red Cell Distribution Width 20.1 % Platelet Count 157 TH/MM3 Mean Platelet Volume 8.6 FL Neutrophils (%) (Auto) 79.8 % Lymphocytes (%) (Auto) 8.4 % Monocytes (%) (Auto) 11.1 % Eosinophils (%) (Auto) 0.3 % Basophils (%) (Auto) 0.4 % Neutrophils # (Auto) 6.0 TH/MM3 Lymphocytes # (Auto) 0.6 TH/MM3 Monocytes # (Auto) 0.8 TH/MM3 Eosinophils # (Auto) 0.0 TH/MM3 Basophils # (Auto) 0.0 TH/MM3 CBC Comment AUTO DIFF Sodium Level 149 MEQ/L Potassium Level 3.7 MEQ/L Chloride Level 118 MEQ/L Carbon Dioxide Level 24.1 MEQ/L Anion Gap 7 MEQ/L Blood Urea Nitrogen 22 MG/DL Creatinine 0.73 MG/DL Estimat Glomerular Filtration 77 ML/MIN Rate Random Glucose 105 MG/DL Calcium Level 8.0 MG/DL Magnesium Level 2.0 MG/DL Imaging Remarks Last Impressions Small Bowel X-Ray 08/24/16 0000 Signed Impressions: Service Date/Time: Wednesday, August 24, 2016 12:04 - CONCLUSION: 1. Mild to moderate diffuse small bowel distention and increased small bowel transit time. 2. Large proximal thoracic esophageal diverticulum. 3. Evaluation of the colon is somewhat limited due to to incomplete distention but the appearance is suspicious for diffuse colitis. Dontrell Lovelace MD Current Medications Active Medications Chlorhexidine Gluconate (Chlorhexidine 2% Cloth) 3 pack DAILY@04 TOP; Start 08/25 at 04:00; Stop 08/29/16 at 04:01 Diatrizoate Meglum/ Diatrizoate Sod ( Gastroview Liq) 240 ml STK-MED ONCE PO Last administered on 08/24/16t 12:00; Admin Dose 240 ML; Start 08/24/16 at 12:00; Stop 08/24/16 at 13:26; Status DC Physical Exam General General Appearance: Comfortable, Pale, Malnourished (a nurse on the bed 6 Chambers) Eyes Eye Exam: Pupils Reactive Ears & Nose Ears & Nose Exam: Nasal Mucosa [place] Throat Throat Exam: Oral Mucosa [place] & Moist Neck Neck Exam: Trachea Midline Pulmonary Resp Exam: Breath Sounds Equal, No Distress, Diminished Breath Sounds, Poor Inspiratory Effort Resp Remarks Expiratory wheezes Cardiology CV Exam: Normal Sinus Rhythm, Good Perfusion Gastrointestinal/Abdomen GI Exam: Non-Tender, Bowel Sounds Present Musculoskeletal MS Exam: Normal Tone Integumentary Skin Exam: Warm, Dry Skin Remarks Pale Extremeties Extremities Exam: Trace Edema Extremeties Remarks Right lower extremity Neurologic Neuro Exam: Awake Psychiatric Psych Exam: Appropriate Responses VTE Prophylaxis VTE Prophylaxis Device: SCDs PUD Prophylasis PUD Prophylaxis: Protonix Assessment/Plan Assessment/Plan Assessment Admitted with hemorrhagic shock, resolved Acute anemia of acute upper GI bleed, status post transfusion Coagulopathy secondary to Coumadin, resolved, status post fresh frozen plasma and vitamin K, Upper endoscopy done on August 24, 2016, diffuse colitis History of stroke with aphasia Atrial fibrillation Hypertension Reflux Renal disease Dyspnea Management Transfer to telemetry No anticoagulation at this time Follow CBC, stable hemoglobin at 8.9. Monitor Follow renal function, improvement today with numbers trending down, continue to monitor Cardiology following, appreciate expert opinion GI following PO Protonix, PUD prophylaxis Sandostatin IV drip continues Discussed with nurse Monitor labs Monitor pulmonary assessments, with patient's crackles and expiratory wheezes chest x-ray ordered, some dyspnea at rest D/W Dr. Newsome, patient seen on his behalf D/W patient D/W nurse Discussed Condition with: Patient [place],Miguelina CRUZ Aug 25, 2016 10:27
--- NOTE | 2016-08-25 11:11 | RADRPT ---
EXAM DATE/TIME: 08/25/2016 10:53 [facility] COMPARISON: CHEST SINGLE AP, May 24, 2016, 21:44. INDICATIONS : Dyspnea. MEDICAL HISTORY : Seizures. Stroke. Hypertension. Colon cancer. Lung cancer SURGICAL HISTORY : Hysterectomy. [place]zz[place] LLE. ENCOUNTER: Initial ACUITY: 1 day PAIN SCORE: 0/10 LOCATION: Bilateral chest FINDINGS: A single view of the chest demonstrates complete opacification left hemithorax with volume loss. Post surgical changes. Minimal density right lower lobe. Osseous structures are intact. CONCLUSION: 1. Postsurgical changes from pneumonectomy. 2. Right basilar infiltrate. Antwan Eason MD on August 25, 2016 at 11:08 Board Certified Radiologist. This report was verified electronically.
[2016-08-25 11:30] LABS: BANDS 21 % (0-6); CORRECTED NUCLEATED RBC 1 /100 WBC (0-0); POLYS (SEG NEUTROPHILS) 72 % (16-70); WBC DIFF SAMPLE 100
[2016-08-25 11:31] LABS: PLATELET ESTIMATE SMEAR NORMAL (NORMAL); PLATELET MORPHOLOGY NORMAL (NORMAL); SCAN/DIFF FINAL DIFF MANUAL
[2016-08-25 12:00] VITALS: BP 132/63; PULSE 95; RESP 18; TEMP 98.6; O2SAT 94
--- NOTE | 2016-08-25 12:30 | PD.CARD.PN ---
Subjective Subjective Remarks The patient is confused and does not know where she is. She denies chest pain, shortness of breath or GI symptoms although apparently she is having diarrhea. Telemetry reveals sinus rhythm. Chart reviewed. Objective Medications Reviewed Vital Signs / I&O Vital Signs Date Time Temp Pulse Resp B/P Pulse Ox O2 Delivery O2 Flow Rate FiO2 08/25/16 12:00 98.6 95 18 132/63 94 08/25/16 08:00 98.4 81 20 134/65 94 08/25/16 04:00 98.1 81 18 127/65 95 08/25/16 00:00 97.8 83 18 144/64 94 08/24/16 20:00 97.7 86 18 153/65 96 08/24/16 15:29 94.5 88 22 160/69 95 08/24/16 14:00 72 I/O 08/24/16 08/24/16 08/24/16 08/25/16 08/25/16 08/25/16 07:00 15:00 23:00 07:00 15:00 23:00 Intake Total 1402 ml 575 ml 1432 ml 1552 ml Output Total 1400 ml 800 ml 600 ml 275 ml Balance 2 ml -225 ml 832 ml 1277 ml Intake Oral 50 ml 0 ml 360 ml 480 ml IV Total 1072 ml 1072 ml Other 1352 ml 575 ml Output Urine Total 1200 ml 800 ml 600 ml 275 ml Stool Total 200 ml Estimated Blood Loss 0 ml 0 ml # Bowel Movements 2 Physical Exam GENERAL: Well-nourished, well-developed patient in no apparent distress. Confused. SKIN: Warm and dry. NECK: JVD normal - less than or equal to 5 cm H20. CARDIOVASCULAR: Regular rate and rhythm without murmurs, gallops, or rubs. RESPIRATORY: Normal breath sounds - equal bilaterally. No accessory muscle use. No wheezes, rales or rubs. PERIPHERY: No cyanosis, or edema. Laboratory Laboratory Tests Test 08/24/16 08/25/16 08/25/16 18:41 00:10 05:55 Hemoglobin 9.9 GM/DL 9.1 GM/DL 8.9 GM/DL Hematocrit 30.2 % 27.2 % 26.9 % White Blood Count 7.5 TH/MM3 Red Blood Count 3.05 MIL/MM3 Mean Corpuscular Volume 88.1 FL Mean Corpuscular Hemoglobin 29.1 PG Mean Corpuscular Hemoglobin 33.0 % Concent Red Cell Distribution Width 20.1 % Platelet Count 157 TH/MM3 Mean Platelet Volume 8.6 FL Neutrophils (%) (Auto) 79.8 % Lymphocytes (%) (Auto) 8.4 % Monocytes (%) (Auto) 11.1 % Eosinophils (%) (Auto) 0.3 % Basophils (%) (Auto) 0.4 % Neutrophils # (Auto) 6.0 TH/MM3 Lymphocytes # (Auto) 0.6 TH/MM3 Monocytes # (Auto) 0.8 TH/MM3 Eosinophils # (Auto) 0.0 TH/MM3 Basophils # (Auto) 0.0 TH/MM3 CBC Comment AUTO DIFF Differential Total Cells 100 Counted Neutrophils % (Manual) 72 % Band Neutrophils % 21 % Lymphocytes % 3 % Monocytes % 4 % Neutrophils # (Manual) 7.0 TH/MM3 Nucleated Red Blood Cells 1 /100 WBC Differential Comment FINAL DIFF MANUAL Platelet Estimate NORMAL Platelet Morphology Comment NORMAL Sodium Level 149 MEQ/L Potassium Level 3.7 MEQ/L Chloride Level 118 MEQ/L Carbon Dioxide Level 24.1 MEQ/L Anion Gap 7 MEQ/L Blood Urea Nitrogen 22 MG/DL Creatinine 0.73 MG/DL Estimat Glomerular Filtration 77 ML/MIN Rate Random Glucose 105 MG/DL Calcium Level 8.0 MG/DL Magnesium Level 2.0 MG/DL Imaging Last 48 hours Impressions Chest X-Ray 08/25/16 0000 Signed Impressions: Service Date/Time: Thursday, August 25, 2016 10:53 - CONCLUSION: 1. Postsurgical changes from pneumonectomy. 2. Right basilar infiltrate. Antwan Eason MD Small Bowel X-Ray 08/24/16 0000 Signed Impressions: Service Date/Time: Wednesday, August 24, 2016 12:04 - CONCLUSION: 1. Mild to moderate diffuse small bowel distention and increased small bowel transit time. 2. Large proximal thoracic esophageal diverticulum. 3. Evaluation of the colon is somewhat limited due to to incomplete distention but the appearance is suspicious for diffuse colitis. Dontrell Lovelace MD Assessment and Plan Assessment and Plan Problems: GI bleed with severe anemia Paroxysmal atrial fibrillation Multiple CVAs Confusion Hyperlipidemia Recommendations: Ideally we cannot anticoagulate the patient and her present state and with multiple GI bleeds. I would have her on a baby aspirin if she is a candidate. Ideally she should be back on her digoxin and statins. I have nothing more to add and we'll be available if needed. Mike Waggoner MD Aug 25, 2016 12:30
[2016-08-25 16:00] VITALS: BP 137/68; PULSE 96; RESP 18; TEMP 98.3; O2SAT 90
--- NOTE | 2016-08-25 19:33 | HHI.GIFU ---
Subjective Remarks comfortable in bed daughter at bed side, passing uriel no bleeding Objective Vitals I&O Vital Signs Date Time Temp Pulse Resp B/P Pulse Ox O2 Delivery O2 Flow Rate FiO2 08/25/16 16:09 12 08/25/16 16:00 98.3 96 18 137/68 90 08/25/16 12:00 98.6 95 18 132/63 94 08/25/16 08:00 98.4 81 20 134/65 94 08/25/16 04:00 98.1 81 18 127/65 95 08/25/16 00:00 97.8 83 18 144/64 94 08/24/16 20:00 97.7 86 18 153/65 96 I/O 08/24/16 08/24/16 08/24/16 08/25/16 08/25/16 08/25/16 07:00 15:00 23:00 07:00 15:00 23:00 Intake Total 1402 ml 575 ml 1432 ml 1552 ml 1000 ml Output Total 1400 ml 800 ml 600 ml 275 ml 850 ml Balance 2 ml -225 ml 832 ml 1277 ml 150 ml Intake Oral 50 ml 0 ml 360 ml 480 ml 1000 ml IV Total 1072 ml 1072 ml Other 1352 ml 575 ml Output Urine Total 1200 ml 800 ml 600 ml 275 ml 850 ml Stool Total 200 ml Estimated Blood Loss 0 ml 0 ml # Bowel Movements 2 2 Laboratory Laboratory Tests Test 08/25/16 08/25/16 00:10 05:55 Hemoglobin 9.1 8.9 Hematocrit 27.2 26.9 White Blood Count 7.5 Red Blood Count 3.05 Mean Corpuscular Volume 88.1 Mean Corpuscular Hemoglobin 29.1 Mean Corpuscular Hemoglobin 33.0 Concent Red Cell Distribution Width 20.1 Platelet Count 157 Mean Platelet Volume 8.6 Neutrophils (%) (Auto) 79.8 Lymphocytes (%) (Auto) 8.4 Monocytes (%) (Auto) 11.1 Eosinophils (%) (Auto) 0.3 Basophils (%) (Auto) 0.4 Neutrophils # (Auto) 6.0 Lymphocytes # (Auto) 0.6 Monocytes # (Auto) 0.8 Eosinophils # (Auto) 0.0 Basophils # (Auto) 0.0 CBC Comment AUTO DIFF Differential Total Cells 100 Counted Neutrophils % (Manual) 72 Band Neutrophils % 21 Lymphocytes % 3 Monocytes % 4 Neutrophils # (Manual) 7.0 Nucleated Red Blood Cells 1 Differential Comment FINAL DIFF MANUAL Platelet Estimate NORMAL Platelet Morphology Comment NORMAL Sodium Level 149 Potassium Level 3.7 Chloride Level 118 Carbon Dioxide Level 24.1 Anion Gap 7 Blood Urea Nitrogen 22 Creatinine 0.73 Estimat Glomerular Filtration 77 Rate Random Glucose 105 Calcium Level 8.0 Magnesium Level 2.0 Imaging Last Impressions Chest X-Ray 08/25/16 0000 Signed Impressions: Service Date/Time: Thursday, August 25, 2016 10:53 - CONCLUSION: 1. Postsurgical changes from pneumonectomy. 2. Right basilar infiltrate. Antwan Eason MD Small Bowel X-Ray 08/24/16 0000 Signed Impressions: Service Date/Time: Wednesday, August 24, 2016 12:04 - CONCLUSION: 1. Mild to moderate diffuse small bowel distention and increased small bowel transit time. 2. Large proximal thoracic esophageal diverticulum. 3. Evaluation of the colon is somewhat limited due to to incomplete distention but the appearance is suspicious for diffuse colitis. Dontrell Lovelace MD Physical Exam HEENT: Normocephalic; atraumatic; no jaundice. CHEST: CTA, diminished CARDIAC: RRR ABDOMEN: Soft, nondistended, none tender; no hepatosplenomegaly; bowel sounds are present in all four quadrants. EXTREMITIES: No clubbing, cyanosis, or edema. SKIN: Generalized pallor. CROZER OPERATOR: No focal deficits; lethargic and oriented times three. Assessment and Plan Plan ASSESSMENT: - Upper GI BLeeding. S/P EGD (08/23/16)---> Recent upper GI bleed, hiatal hernia , otherwise unremarkable EGD possibly suggestive of a dieulafoy. Pt has not had any further hematemesis, but did have 2 bloody stools with dark red blood overnight. However, HH has remained stable. Will get SBFT, Monitor HH q6h x 3. Notify GI of active bleeding. Protonix. Gtt. Clear liquids. - Anemia, acute blood loss. S/P 2 units PRBC. HH 9.5/27.2. - Coagulopathy. S/P 6 units PRBC. INR 1.1 PLAN: - Clear liquids - SBFT unremarkable - HH q6h x3 - Transfuse as necessary - Protonix Gtt - Notify GI of active bleeding. - EGD on Saturday to reassess Hector Nicholas MD Aug 25, 2016 19:33
[2016-08-25 20:00] VITALS: BP 153/68; PULSE 102; PULSE 93; RESP 18; TEMP 98.5; O2SAT 92
[2016-08-25] MEDS: cefTRIAXone INJ 1,000 MG in SODIUM CHLORIDE 0.9% INJ 100 ML IV SCH (20:23)
[2016-08-25] MEDS: AZITHROMYCIN INJ 250 MG in SODIUM CHLOR 0.9% 250 ML INJ 250 ML IV SCH (20:24)
[2016-08-25] MEDS: metroNIDAZOLE 250 MG INJ 50 ML IV SCH (22:00)
[2016-08-26] VITALS (9 sets, daily range): BP systolic 123–159; BP diastolic 60–73; PULSE 74–105; RESP 17–22; TEMP 97.9–98.8; O2SAT 91–96
[2016-08-26] MEDS: OCTREOTIDE INJ 500 MCG in SODIUM CHLORID 0.9% 500 ML INJ 500 ML IV SCH ×3 (03:29→17:29)
[2016-08-26] MEDS: CHLORHEXIDINE GLUCONATE 2 % 1 PACK (2 CLOTHS)(taper/protocol) TOP SCH (04:00)
[2016-08-26] MEDS: RESP: ALBUTEROL 2.5 MG/IPRATROPIUM 0.5 MG NEB (PRN) INH ×3 (04:17→12:38)
[2016-08-26] MEDS: MORPHINE SULFATE 4 MG/ML INJ IV PRN ×4 (04:57→20:41)
[2016-08-26] MEDS: metroNIDAZOLE 250 MG INJ 50 ML IV SCH ×3 (04:58→22:00)
[2016-08-26] MEDS: PANTOPRAZOLE SODIUM 40 MG VIAL IV PUSH SCH ×2 (04:58→17:28)
[2016-08-26] MEDS: SODIUM CHLOR 0.9% 1000 ML INJ 1,000 ML IV SCH ×2 (05:46→08:41)
[2016-08-26] MEDS: SODIUM CHLORIDE 0.9% FLUSH 5 ML FLUSH IV FLUSH SCH ×2 (08:41→20:42)
[2016-08-26] MEDS: ONDANSETRON HCL 4 MG/2 ML VIAL IV PRN ×2 (08:47→20:40)
--- NOTE | 2016-08-26 10:21 | HHI.PR ---
Subjective Hospital Day: 2 Subjective Remarks Abdominal pain, generalized Poor historian, but answer simple questions Vomiting this a.m., clear liquids, Bouts of nausea Belching No other complaints Review of Systems Constitutional Constitutional: Fatigue, Weakness Constitutional Remarks 10 point ROS done with limited exam. Positives noted, otherwise unremarkable Pulmonary Respiratory: Shortness of Breath, Wheezing (mild expiratory wheezing) GI/Abdomen GI/Abdomen Remarks Gen. last abdominal pain, nausea and vomiting today after consuming clear liquids Cramping Genitourinary Remarks John clamped for 2 hours and will trial DC. May and reinsert if patient doesn' t void in 8 hours Musculoskeletal MS: Weakness Neurologic Neurologic Remarks Poor historian Psychiatric Psychiatric: Normal Mood Psychiatric Remarks Sleeps a lot Vitals/Results Intake & Output 08/25/16 08/25/16 08/26/16 15:00 23:00 07:00 Intake Total 1000 ml 2486 ml 1412 ml Output Total 850 ml 500 ml Balance 150 ml 2486 ml 912 ml Intake Oral 1000 ml 480 ml IV Total 2085 ml 897 ml Other 401 ml 35 ml Output Urine Total 850 ml 500 ml # Bowel Movements 2 0 Vital Signs Vital Signs Date Time Temp Pulse Resp B/P Pulse Ox O2 Delivery O2 Flow Rate FiO2 08/26/16 09:44 91 Nasal Cannula 2.00 08/26/16 08:00 98.0 79 20 129/60 92 08/26/16 04:26 98.8 86 18 133/63 94 08/26/16 04:17 92 Nasal Cannula 2.00 08/26/16 04:10 Nasal Cannula 3.00 08/26/16 00:54 98.6 89 17 123/60 95 08/26/16 00:00 Nasal Cannula 2.00 08/25/16 20:00 Nasal Cannula 2.00 08/25/16 20:00 98.5 93 18 153/68 92 08/25/16 20:00 102 08/25/16 16:09 12 08/25/16 16:00 98.3 96 18 137/68 90 08/25/16 12:00 98.6 95 18 132/63 94 CBC/BMP: 08/25/16 0555 08/25/16 0555 Imaging Remarks Last Impressions Chest X-Ray 08/25/16 0000 Signed Impressions: Service Date/Time: Thursday, August 25, 2016 10:53 - CONCLUSION: 1. Postsurgical changes from pneumonectomy. 2. Right basilar infiltrate. Antwan Eason MD Small Bowel X-Ray 08/24/16 0000 Signed Impressions: Service Date/Time: Wednesday, August 24, 2016 12:04 - CONCLUSION: 1. Mild to moderate diffuse small bowel distention and increased small bowel transit time. 2. Large proximal thoracic esophageal diverticulum. 3. Evaluation of the colon is somewhat limited due to to incomplete distention but the appearance is suspicious for diffuse colitis. Dontrell Lovelace MD Current Medications Active Medications Azithromycin 250 mg/Sodium Chloride 250 ml @ 250 mls/hr Q24H IV Last administered on 08/25/16 20:24; Admin Dose 250 MLS/HR; Start 08/25/16 at 20:00 Ceftriaxone Sodium 1000 mg/ Sodium Chloride 100 ml @ 200 mls/hr Q24H IV Last administered on 08/25/16 20:23; Admin Dose 200 MLS/HR; Start 08/25/16 at 21:00 Metronidazole (Flagyl 250 Mg Inj) 50 ml @ 100 mls/hr Q8HR IV Last administered on 08/26/16 04:58; Admin Dose 100 MLS/HR; Start 08/25/16 at 22:00 Physical Exam General General Appearance: Comfortable, Pale, Malnourished (a nurse on the bed 6 Chambers) Eyes Eye Exam: Pupils Reactive Ears & Nose Ears & Nose Exam: Nasal Mucosa [place] Throat Throat Exam: Oral Mucosa [place] & Moist Neck Neck Exam: Trachea Midline Pulmonary Resp Exam: Breath Sounds Equal, No Distress, Decreased Bases, Diminished Breath Sounds, Poor Inspiratory Effort Resp Remarks Expiratory wheezes, decreased breath sounds right greater than left Cardiology CV Exam: Normal Sinus Rhythm, Good Perfusion Gastrointestinal/Abdomen GI Exam: Non-Tender, Bowel Sounds Present GI Remarks Some vomiting this a.m. Genitourinary Remarks Will DC John today Musculoskeletal MS Exam: Normal Tone Integumentary Skin Exam: Warm, Dry Skin Remarks Pale Extremeties Extremities Exam: No Edema, Trace Edema Extremeties Remarks Right lower extremity Neurologic Neuro Exam: Alert, Awake, Oriented, Speech Clear, Moving All Extremities Psychiatric Psych Exam: Appropriate Responses VTE Prophylaxis VTE Prophylaxis Device: SCDs PUD Prophylasis PUD Prophylaxis: Protonix Assessment/Plan Assessment/Plan Assessment Admitted with hemorrhagic shock, resolved Acute anemia of acute upper GI bleed, status post transfusion Coagulopathy secondary to Coumadin, Upper endoscopy done on August 24, 2016, diffuse colitis History of stroke with aphasia Atrial fibrillation Hypertension Reflux Renal disease Dyspnea Nausea, vomiting clear liquids New right lower lobe infiltrate, expiratory wheezes anterior upper lobes. Rule out aspiration pneumonia Management telemetry No anticoagulation at this time Follow CBC, stable hemoglobin at 8.9. Monitor Follow renal function, improvement today with numbers trending down, continue to monitor Cardiology following, appreciate expert opinion GI following appreciate PO Protonix, PUD prophylaxis Sandostatin IV drip continues Nothing by mouth for now. Will have ST eval for possible aspiration, swallow Monitor labs, check CBC today for any change and WBC count Monitor pulmonary assessments, with patient's crackles and expiratory wheezes , changes and chest x-ray. We will look at antibiotic coverage. Currently on cephalosporins and macrolides D/W Dr. Newsome, patient seen on his behalf and discuss new findings D/W patient D/W nurse Miguelina Irwin Aug 26, 2016 10:21
[2016-08-26] MEDS ORDERED: DEXTROSE 5%-LACTATED RING INJ 1,000 ML IV SCH (11:30)
[2016-08-26 13:26] LABS: AUTOMATED NEUTROPHIL # 6.7 TH/MM3 (1.8-7.7); BASOPHIL % 0.3 % (0.0-2.0); EOSINOPHIL # 0.1 TH/MM3 (0-0.4); EOSINOPHIL % 0.7 % (0.0-4.0); HEMATOCRIT 27.4 % (35.0-46.0); HEMO FLAGS AUTO DIFF; LYMPH % 6.9 % (9.0-44.0); LYMPHOCYTE # 0.5 TH/MM3 (1.0-4.8); MEAN CELL VOLUME 90.8 FL (80.0-100.0); MEAN CORPUSCULAR HEMOGLOBIN 28.8 PG (27.0-34.0); MEAN CORPUSCULAR HGB CONC 31.8 % (32.0-36.0); MONO % 8.7 % (0.0-8.0); NEUT % 83.4 % (16.0-70.0); PLATELET COUNT 171 TH/MM3 (150-450); RED BLOOD COUNT 3.02 MIL/MM3 (4.00-5.30); RED CELL DISTRIBUTION WIDTH 19.6 % (11.6-17.2)
[2016-08-26 13:49] LABS: BICARBONATE 22.2 MEQ/L (21.0-32.0); POTASSIUM 3.1 MEQ/L (3.5-5.1)
[2016-08-26 13:58] LABS: BANDS 14 % (0-6); MYELOCYTES 1 % (0-0); POLYS (SEG NEUTROPHILS) 72 % (16-70); WBC DIFF SAMPLE 100
[2016-08-26 13:59] LABS: OVALOCYTES 1+ (NORMAL); PLATELET ESTIMATE SMEAR NORMAL (NORMAL); PLATELET MORPHOLOGY NORMAL (NORMAL); SCAN/DIFF FINAL DIFF MANUAL
--- NOTE | 2016-08-26 17:10 | HHI.GIFU ---
Subjective Remarks Laying comfortably in bed denies any pain denies any bleeding her daughter is at bedside Objective Vitals I&O Vital Signs Date Time Temp Pulse Resp B/P Pulse Ox O2 Delivery O2 Flow Rate FiO2 08/26/16 16:00 98.3 105 22 159/73 95 08/26/16 12:00 97.9 91 22 139/64 96 08/26/16 09:44 91 Nasal Cannula 2.00 08/26/16 09:00 Nasal Cannula 3.00 08/26/16 09:00 97 08/26/16 08:00 98.0 79 20 129/60 92 08/26/16 04:26 98.8 86 18 133/63 94 08/26/16 04:17 92 Nasal Cannula 2.00 08/26/16 04:10 Nasal Cannula 3.00 08/26/16 00:54 98.6 89 17 123/60 95 08/26/16 00:00 Nasal Cannula 2.00 08/25/16 20:00 Nasal Cannula 2.00 08/25/16 20:00 98.5 93 18 153/68 92 08/25/16 20:00 102 I/O 08/25/16 08/25/16 08/25/16 08/26/16 08/26/16 08/26/16 07:00 15:00 23:00 07:00 15:00 23:00 Intake Total 1552 ml 1000 ml 2486 ml 1412 ml 720 ml Output Total 275 ml 850 ml 500 ml 350 ml Balance 1277 ml 150 ml 2486 ml 912 ml 370 ml Intake Oral 480 ml 1000 ml 480 ml 720 ml IV Total 1072 ml 2085 ml 897 ml Other 401 ml 35 ml Output Urine Total 275 ml 850 ml 500 ml 350 ml # Voids 1 # Bowel Movements 2 0 0 Laboratory Laboratory Tests Test 08/26/16 12:47 White Blood Count 8.0 Red Blood Count 3.02 Hemoglobin 8.7 Hematocrit 27.4 Mean Corpuscular Volume 90.8 Mean Corpuscular Hemoglobin 28.8 Mean Corpuscular Hemoglobin 31.8 Concent Red Cell Distribution Width 19.6 Platelet Count 171 Mean Platelet Volume 8.4 Neutrophils (%) (Auto) 83.4 Lymphocytes (%) (Auto) 6.9 Monocytes (%) (Auto) 8.7 Eosinophils (%) (Auto) 0.7 Basophils (%) (Auto) 0.3 Neutrophils # (Auto) 6.7 Lymphocytes # (Auto) 0.5 Monocytes # (Auto) 0.7 Eosinophils # (Auto) 0.1 Basophils # (Auto) 0.0 CBC Comment AUTO DIFF Differential Total Cells 100 Counted Neutrophils % (Manual) 72 Band Neutrophils % 14 Lymphocytes % 9 Monocytes % 4 Neutrophils # (Manual) 7.0 Myelocytes 1 Differential Comment FINAL DIFF MANUAL Platelet Estimate NORMAL Platelet Morphology Comment NORMAL Ovalocytes 1+ Sodium Level 144 Potassium Level 3.1 Chloride Level 113 Carbon Dioxide Level 22.2 Anion Gap 9 Blood Urea Nitrogen 13 Creatinine 0.70 Estimat Glomerular Filtration 81 Rate Random Glucose 161 Calcium Level 7.5 Imaging Last 48 hours Impressions Chest X-Ray 08/25/16 0000 Signed Impressions: Service Date/Time: Thursday, August 25, 2016 10:53 - CONCLUSION: 1. Postsurgical changes from pneumonectomy. 2. Right basilar infiltrate. Antwan Eason MD Physical Exam HEENT: Normocephalic; atraumatic; no jaundice. CHEST: CTA, diminished CARDIAC: RRR ABDOMEN: Soft, nondistended, none tender; no hepatosplenomegaly; bowel sounds are present in all four quadrants. EXTREMITIES: No clubbing, cyanosis, or edema. SPANNER OPERATOR: No focal deficits; alert and oriented times three. Assessment and Plan Plan ASSESSMENT: - Upper GI BLeeding. S/P EGD (08/23/16)---> Recent upper GI bleed, hiatal hernia , otherwise unremarkable EGD possibly suggestive of a dieulafoy. Pt has not had any further hematemesis, but did have 2 bloody stools with dark red blood overnight. However, HH has remained stable. Will get SBFT, Monitor HH q6h x 3. Notify GI of active bleeding. Protonix. Gtt. Clear liquids. - Anemia, acute blood loss. S/P 2 units PRBC. HH 9.5/27.2. - Coagulopathy. S/P 6 units PRBC. INR 1.1 PLAN: - Clear liquids - SBFT unremarkable - HH q6h x3 - Transfuse as necessary - Protonix Gtt - Notify GI of active bleeding. - EGD tomorrow to reassess and if negative consider outpatient capsule endoscopy Hector Nicholas MD Aug 26, 2016 17:10
[2016-08-26] MEDS: METOCLOPRAMIDE HCL 10 MG/2 ML VIAL IV PRN (17:28)
[2016-08-26] MEDS: D5-1/2 NS + KCL 40 MEQ INJ 1,000 ML IV SCH (20:15)
[2016-08-26] MEDS: AZITHROMYCIN INJ 250 MG in SODIUM CHLOR 0.9% 250 ML INJ 250 ML IV SCH (20:36)
[2016-08-26] MEDS: cefTRIAXone INJ 1,000 MG in SODIUM CHLORIDE 0.9% INJ 100 ML IV SCH (20:40)
[2016-08-27] VITALS (9 sets, daily range): BP systolic 113–159; BP diastolic 58–82; PULSE 72–86; RESP 16–20; TEMP 97–98.2; O2SAT 93–97
[2016-08-27] MEDS: CHLORHEXIDINE GLUCONATE 2 % 1 PACK (2 CLOTHS)(taper/protocol) TOP SCH (04:00)
[2016-08-27] MEDS: OCTREOTIDE INJ 500 MCG in SODIUM CHLORID 0.9% 500 ML INJ 500 ML IV SCH ×3 (04:45→22:38)
[2016-08-27] MEDS: ONDANSETRON HCL 4 MG/2 ML VIAL IV PRN ×2 (05:35→19:47)
[2016-08-27] MEDS: PANTOPRAZOLE SODIUM 40 MG VIAL IV PUSH SCH ×2 (05:36→17:21)
[2016-08-27] MEDS: MORPHINE SULFATE 4 MG/ML INJ IV PRN ×2 (05:36→12:31)
[2016-08-27] MEDS: metroNIDAZOLE 250 MG INJ 50 ML IV SCH ×2 (05:36→15:15)
[2016-08-27 07:02] LABS: BASOPHIL % 0.3 % (0.0-2.0); EOSINOPHIL # 0.3 TH/MM3 (0-0.4); EOSINOPHIL % 4.1 % (0.0-4.0); HEMATOCRIT 27.6 % (35.0-46.0); LYMPH % 10.1 % (9.0-44.0); LYMPHOCYTE # 0.8 TH/MM3 (1.0-4.8); MEAN CELL VOLUME 87.3 FL (80.0-100.0); MEAN CORPUSCULAR HEMOGLOBIN 29.4 PG (27.0-34.0); MEAN CORPUSCULAR HGB CONC 33.7 % (32.0-36.0); MONO % 10.6 % (0.0-8.0); NEUT % 74.9 % (16.0-70.0); PLATELET COUNT 177 TH/MM3 (150-450); RED BLOOD COUNT 3.16 MIL/MM3 (4.00-5.30); RED CELL DISTRIBUTION WIDTH 19.4 % (11.6-17.2); WHITE BLOOD COUNT 8.1 TH/MM3 (4.0-11.0)
[2016-08-27 07:16] LABS: HEMO FLAGS AUTO DIFF
[2016-08-27 07:31] LABS: BICARBONATE 25.8 MEQ/L (21.0-32.0); POTASSIUM 3.2 MEQ/L (3.5-5.1)
[2016-08-27 07:51] LABS: CALCIUM-PROTEIN CORRECTED 8.2 MG/DL (8.5-10.1)
[2016-08-27 08:20] LABS: BANDS 8 % (0-6); EOSINOPHILS 1 % (0-4); METAMYELOCYTES 1 % (0-1); NEUTROPHIL # MANUAL DIFF 6.5 TH/MM3 (1.8-7.7); POLYS (SEG NEUTROPHILS) 71 % (16-70); WBC DIFF SAMPLE 100
[2016-08-27 08:21] LABS: PLATELET ESTIMATE SMEAR NORMAL (NORMAL); PLATELET MORPHOLOGY NORMAL (NORMAL); SCAN/DIFF FINAL DIFF MANUAL
[2016-08-27] MEDS: SODIUM CHLORIDE 0.9% FLUSH 5 ML FLUSH IV FLUSH SCH ×2 (09:00→22:44)
[2016-08-27] MEDS: D5-1/2 NS + KCL 40 MEQ INJ 1,000 ML IV SCH ×2 (09:53→22:41)
[2016-08-27] MEDS ORDERED: PROPOFOL 200 MG/20 ML AMP IV ONE (10:05)
[2016-08-27] MEDS ORDERED: POTASSIUM CL 40 MEQ/30 ML LIQ UDC PO ONE (10:30)
--- NOTE | 2016-08-27 10:37 | HHI.PR ---
Subjective Hospital Day: 2 Subjective Remarks going for repeat EGD no cp mild sob, some wheezing anxious about procedure no fever no acute changes overnight Review of Systems Constitutional Constitutional: Fatigue, Weakness Constitutional Remarks 12 point ROS completed, negative except as noted above Pulmonary Respiratory: Shortness of Breath, Wheezing (mild expiratory wheezing) Musculoskeletal MS: Weakness Psychiatric Psychiatric: Normal Mood Vitals/Results Intake & Output 08/26/16 08/26/16 08/27/16 15:00 23:00 07:00 Intake Total 720 ml 1881 ml 829 ml Output Total 350 ml Balance 370 ml 1881 ml 829 ml Intake Oral 720 ml 120 ml IV Total 1761 ml 348 ml Other 481 ml Output Urine Total 350 ml # Voids 1 1 2 # Bowel Movements 0 0 1 Vital Signs Vital Signs Date Time Temp Pulse Resp B/P Pulse Ox O2 Delivery O2 Flow Rate FiO2 08/27/16 09:40 97.5 80 16 147/64 95 08/27/16 08:05 97.5 73 20 129/60 95 08/27/16 04:00 97.0 77 20 124/59 93 08/27/16 04:00 Nasal Cannula 3.00 08/27/16 00:00 97.6 80 20 146/68 95 08/27/16 00:00 Nasal Cannula 3.00 08/26/16 20:00 74 08/26/16 20:00 98.4 81 20 125/72 96 08/26/16 19:45 Nasal Cannula 3.00 08/26/16 16:00 98.3 105 22 159/73 95 08/26/16 12:00 97.9 91 22 139/64 96 CBC/BMP: 08/27/16 0548 08/27/16 0548 Lab Results Laboratory Tests Test 08/26/16 08/27/16 12:47 05:48 White Blood Count 8.0 TH/MM3 8.1 TH/MM3 Red Blood Count 3.02 MIL/MM3 3.16 MIL/MM3 Hemoglobin 8.7 GM/DL 9.3 GM/DL Hematocrit 27.4 % 27.6 % Mean Corpuscular Volume 90.8 FL 87.3 FL Mean Corpuscular Hemoglobin 28.8 PG 29.4 PG Mean Corpuscular Hemoglobin 31.8 % 33.7 % Concent Red Cell Distribution Width 19.6 % 19.4 % Platelet Count 171 TH/MM3 177 TH/MM3 Mean Platelet Volume 8.4 FL 8.1 FL Neutrophils (%) (Auto) 83.4 % 74.9 % Lymphocytes (%) (Auto) 6.9 % 10.1 % Monocytes (%) (Auto) 8.7 % 10.6 % Eosinophils (%) (Auto) 0.7 % 4.1 % Basophils (%) (Auto) 0.3 % 0.3 % Neutrophils # (Auto) 6.7 TH/MM3 6.0 TH/MM3 Lymphocytes # (Auto) 0.5 TH/MM3 0.8 TH/MM3 Monocytes # (Auto) 0.7 TH/MM3 0.9 TH/MM3 Eosinophils # (Auto) 0.1 TH/MM3 0.3 TH/MM3 Basophils # (Auto) 0.0 TH/MM3 0.0 TH/MM3 CBC Comment AUTO DIFF AUTO DIFF Differential Total Cells 100 100 Counted Neutrophils % (Manual) 72 % 71 % Band Neutrophils % 14 % 8 % Lymphocytes % 9 % 10 % Monocytes % 4 % 9 % Neutrophils # (Manual) 7.0 TH/MM3 6.5 TH/MM3 Myelocytes 1 % Differential Comment FINAL DIFF FINAL DIFF MANUAL MANUAL Platelet Estimate NORMAL NORMAL Platelet Morphology Comment NORMAL NORMAL Ovalocytes 1+ Sodium Level 144 MEQ/L 144 MEQ/L Potassium Level 3.1 MEQ/L 3.2 MEQ/L Chloride Level 113 MEQ/L 112 MEQ/L Carbon Dioxide Level 22.2 MEQ/L 25.8 MEQ/L Anion Gap 9 MEQ/L 6 MEQ/L Blood Urea Nitrogen 13 MG/DL 8 MG/DL Creatinine 0.70 MG/DL 0.64 MG/DL Estimat Glomerular Filtration 81 ML/MIN 90 ML/MIN Rate Random Glucose 161 MG/DL 126 MG/DL Calcium Level 7.5 MG/DL 7.2 MG/DL Eosinophils % 1 % Metamyelocytes 1 % Protein Corrected Calcium 8.2 MG/DL Total Protein 5.2 GM/DL Physical Exam General General Appearance: Well Developed, Comfortable, Pale, Malnourished (a nurse on the bed 6 Chambers) Eyes Eye Exam: Pupils Equal, Pupils Reactive Ears & Nose Ears & Nose Exam: Nasal Mucosa [place] Throat Throat Exam: Oral Mucosa [place] & Moist Neck Neck Exam: Trachea Midline Pulmonary Resp Exam: Breath Sounds Equal, No Distress, Decreased Bases, Diminished Breath Sounds, Poor Inspiratory Effort Cardiology CV Exam: Regular, Normal Sinus Rhythm, Good Perfusion Gastrointestinal/Abdomen GI Exam: Soft, Non-Tender, Bowel Sounds Present, Non-Distended Musculoskeletal MS Exam: Normal Tone Integumentary Skin Exam: Warm, Dry Extremeties Extremities Exam: Pedal Pulses Palpable, Trace Edema Neurologic Neuro Exam: Alert, Awake, Oriented, Moving All Extremities, No Focal Deficits Neuro Remarks expressive aphasia Psychiatric Psych Exam: Appropriate Responses VTE Prophylaxis VTE Prophylaxis Device: SCDs PUD Prophylasis PUD Prophylaxis: Protonix Assessment/Plan Problem List: (1) Acute blood loss anemia (2) Hx of arteriovenous malformation (AVM) (3) Supratherapeutic INR (4) Upper GI bleed (5) History of CVA (cerebrovascular accident) without residual deficits (6) Hypertension (7) GERD (gastroesophageal reflux disease) (8) Renal insufficiency (9) Atrial fibrillation (10) History of seizures (11) Aphasia (12) Infiltrate noted on imaging study Plan: poss. PNA with wheezing Assessment/Plan Acute GI bleed -S/P 2 PRBC, 6 FFP -No anticoagulation -INR 1 -Appreciate GI input -S/P Upper GI BLeeding. S/P EGD (08/23/16)---> Recent upper GI bleed, hiatal hernia, otherwise unremarkable EGD possibly suggestive of a dieulafoy. -SBFT-results noted -Going for repeat EGD today, may need pill endoscopy as OP -continue PPI -Sandostatin gtg -Monitor HH, stable Acute renal injury, secondary to dehydration-resolved Continue with cautious hydration Coagulopathy, on Coumadin-resolved Hold Coumadin Follow INR daily History of A. fib, on Coumadin -Consult Dr. Waggoner for evaluation, input appreciated. Recommends baby ASA when ok, unable tp anticoagulate in her present state and with multiple GI bleeds -signed off History of CVA, residual expressive aphasia Monitor closely We will hold Coumadin -baby ASA when cleared by GI History hypertension,was hypotensive, now BP stable. -resume Lasix and Norvasc GERD, Continue PPI Wheezing, CXR ? PNA, aspiration -continue empiric abx -start Duonebs -OOB -IS -Swallow eval SCDs for DVT prophylaxis Protonix for GI prophylaxis Labs reviewed, overall improving, but no clear source of bleeding PT eval and tx OOB today D/W RN D/W pt D/W Dr. Lindsay Patient was seen by myself and Dr. Lindsay, this note is written on his behalf Problem Qualifiers (1) Hypertension: Qualified Code: I10 - Essential hypertension (2) GERD (gastroesophageal reflux disease): Qualified Code: K21.9 - Gastroesophageal reflux disease, esophagitis presence not specified (3) Atrial fibrillation: Qualified Code: I48.0 - Paroxysmal atrial fibrillation Lena Villar Aug 27, 2016 10:28
[2016-08-27] MEDS ORDERED: DEXTROSE 5%-LACTATED RING INJ 1,000 ML IV SCH (11:30)
[2016-08-27] MEDS: RESP: ALBUTEROL 2.5 MG/IPRATROPIUM 0.5 MG NEB (PRN) NEB ×2 (11:49→17:39)
[2016-08-27] MEDS: oxyCODONE/ACETAMINOPHEN 5 MG/325 MG TAB PO PRN (17:27)
[2016-08-27] MEDS: AZITHROMYCIN INJ 250 MG in SODIUM CHLOR 0.9% 250 ML INJ 250 ML IV SCH (19:46)
[2016-08-27] MEDS: cefTRIAXone INJ 1,000 MG in SODIUM CHLORIDE 0.9% INJ 100 ML IV SCH (22:48)
[2016-08-28] VITALS (10 sets, daily range): BP systolic 119–146; BP diastolic 58–67; PULSE 77–92; RESP 16–18; TEMP 97.5–98.1; O2SAT 93–98
[2016-08-28] MEDS: metroNIDAZOLE 250 MG INJ 50 ML IV SCH ×4 (00:19→22:14)
[2016-08-28] MEDS: CHLORHEXIDINE GLUCONATE 2 % 1 PACK (2 CLOTHS)(taper/protocol) TOP SCH (04:00)
[2016-08-28] MEDS: PANTOPRAZOLE SODIUM 40 MG VIAL IV PUSH SCH (05:50)
[2016-08-28] MEDS: RESP: ALBUTEROL 2.5 MG/IPRATROPIUM 0.5 MG NEB (PRN) NEB (07:52)
[2016-08-28] MEDS: FUROSEMIDE 20 MG TAB PO SCH (08:32)
[2016-08-28] MEDS: OCTREOTIDE INJ 500 MCG in SODIUM CHLORID 0.9% 500 ML INJ 500 ML IV SCH (08:33)
[2016-08-28] MEDS: SODIUM CHLORIDE 0.9% FLUSH 5 ML FLUSH IV FLUSH SCH ×2 (08:33→20:28)
[2016-08-28] MEDS: D5-1/2 NS + KCL 40 MEQ INJ 1,000 ML IV SCH (08:36)
[2016-08-28] MEDS ORDERED: CRESTOR 10 MG PO SCH (09:00)
--- NOTE | 2016-08-28 10:28 | HHI.PR ---
Subjective Hospital Day: 2 Subjective Remarks No GI bleed Complaining of some mild abdominal discomfort Tolerating diet fairly No nausea, no vomiting No chest pain Mildly short of breath with wheezing (Lena Villar) Review of Systems Constitutional Constitutional: Fatigue, Weakness Constitutional Remarks 12 point ROS completed, negative except as noted above, unreliable (Lena Villar) Pulmonary Respiratory: Shortness of Breath, Wheezing (mild expiratory wheezing) (Lena Villar) Musculoskeletal MS: Weakness (Lena Villar) Psychiatric Psychiatric: Normal Mood (Lena Villar) Vitals/Results Intake & Output 08/27/16 08/27/16 08/28/16 15:00 23:00 07:00 Intake Total 1195 ml 1330 ml 1017 ml Output Total 450 ml Balance 1195 ml 1330 ml 567 ml Intake Oral 120 ml 480 ml 150 ml IV Total 975 ml 850 ml 867 ml Other 100 ml Output Urine Total 450 ml # Voids 7 4 2 # Bowel Movements 0 0 Vital Signs Vital Signs Date Time Temp Pulse Resp B/P Pulse Ox O2 Delivery O2 Flow Rate FiO2 08/28/16 08:21 97 Nasal Cannula 2.00 08/28/16 08:05 97.8 78 16 128/59 97 08/28/16 04:00 98.0 84 18 146/67 93 08/28/16 00:00 97.9 81 18 125/58 96 08/27/16 20:03 98.2 85 16 113/58 96 08/27/16 20:00 Nasal Cannula 2.00 08/27/16 16:05 97.5 85 18 119/66 95 08/27/16 14:49 97 Nasal Cannula 2.00 08/27/16 12:05 97.8 86 18 159/82 96 08/27/16 10:33 76 16 135/68 96 (Lena Villar) CBC/BMP: 08/27/16 0548 08/27/16 0548 Physical Exam General General Appearance: Well Developed, Comfortable, Pale, Malnourished (a nurse on the bed 6 Chambers) (Lena Villar) Eyes Eye Exam: Pupils Equal, Pupils Reactive (Lena Villar) Ears & Nose Ears & Nose Exam: Nasal Mucosa [place] (Gross,Lena G. SUPERVISORY INVESTIGATIVE SPECIALIST) Throat Throat Exam: Oral Mucosa [place] & Moist (Lena Villar G. SUPERVISORY INVESTIGATIVE SPECIALIST) Neck Neck Exam: Trachea Midline (Lena Villar G. SUPERVISORY INVESTIGATIVE SPECIALIST) Pulmonary Resp Exam: Breath Sounds Equal, No Distress, Decreased Bases, Diminished Breath Sounds, Poor Inspiratory Effort Resp Remarks Expiratory wheezes with bibasilar Rales (Lena Villar G. SUPERVISORY INVESTIGATIVE SPECIALIST) Cardiology CV Exam: Regular, Normal Sinus Rhythm, Good Perfusion (GrossLena G. SUPERVISORY INVESTIGATIVE SPECIALIST) Gastrointestinal/Abdomen GI Exam: Soft, Non-Tender, Bowel Sounds Present, Non-Distended (GrossLena G. SUPERVISORY INVESTIGATIVE SPECIALIST) Musculoskeletal MS Exam: Normal Tone (GrossLena G. SUPERVISORY INVESTIGATIVE SPECIALIST) Integumentary Skin Exam: Warm, Dry (GrossLena G. SUPERVISORY INVESTIGATIVE SPECIALIST) Extremeties Extremities Exam: Pedal Pulses Palpable, Trace Edema (Daniel Villarana G. SUPERVISORY INVESTIGATIVE SPECIALIST) Neurologic Neuro Exam: Alert, Awake, Oriented, Moving All Extremities, No Focal Deficits Neuro Remarks expressive aphasia (Lena Villar G. SUPERVISORY INVESTIGATIVE SPECIALIST) Psychiatric Psych Exam: Appropriate Responses (Lena Villar G. SUPERVISORY INVESTIGATIVE SPECIALIST) VTE Prophylaxis VTE Prophylaxis Device: SCDs (Lena Villar G. SUPERVISORY INVESTIGATIVE SPECIALIST) PUD Prophylasis PUD Prophylaxis: Protonix (Lena Villar G. SUPERVISORY INVESTIGATIVE SPECIALIST) Assessment/Plan Problem List: (1) Acute blood loss anemia (2) Hx of arteriovenous malformation (AVM) (3) Supratherapeutic INR (4) Upper GI bleed (5) History of CVA (cerebrovascular accident) without residual deficits (6) Hypertension (7) GERD (gastroesophageal reflux disease) (8) Renal insufficiency (9) Atrial fibrillation (10) History of seizures (11) Aphasia (12) Infiltrate noted on imaging study Plan: poss. PNA with wheezing Assessment/Plan Acute GI bleed -S/P 2 PRBC, 6 FFP -No anticoagulation -INR 1 -Appreciate GI input -S/P Upper GI BLeeding. S/P EGD (08/23/16)---> Recent upper GI bleed, hiatal hernia, otherwise unremarkable EGD possibly suggestive of a dieulafoy. -SBFT-results noted -S/P EGD (08/27/16)---> gastritis, hiatal hernia, BX pending. Pt has not had any further hematemesis, or blood in stools -We'll need capsule endoscopy as outpatient -continue PPI orally -DC Sandostatin drip -H&H stable Acute renal injury, secondary to dehydration-resolved Discontinue IV fluid Coagulopathy, on Coumadin-resolved Continue to hold Coumadin History of A. fib, on Coumadin -Consult Dr. Waggoner for evaluation, input appreciated. Recommends baby ASA when ok, unable to anticoagulate in her present state and with multiple GI bleeds -signed off History of CVA, residual expressive aphasia Monitor closely We will hold Coumadin -baby ASA when cleared by GI History hypertension,was hypotensive, now BP stable. -Continue Lasix and Norvasc GERD, Continue PPI Wheezing, CXR ? PNA, aspiration -continue empiric abx -Continue Duonebs -OOB -IS -Swallow eval-recommendations to -Noted with increased wheezing, bibasilar ralesSolu-Medrol 80 milligrams 1, change duo nebs to 4 times a day scheduled Lasix PO given. Discontinue IVF SCDs for DVT prophylaxis Protonix for GI prophylaxis PT eval and tx Case management consultation for discharge planning, home health care with physical therapy Repeat labs in the morning If improved, and cleared by GI, possible discharge tomorrow D/W RN D/W pt D/W Dr. Lindsay Patient was seen by myself and Dr. Lindsay, this note is written on his behalf ( Lena Villar) Assessment/Plan pt seen and examined as above face to face time spent with pt labs and notes reviewed plan of care dw livestock nutritionist explained to pt (Guerline Lindsay MD) Problem Qualifiers (1) Hypertension: Qualified Code: I10 - Essential hypertension (2) GERD (gastroesophageal reflux disease): Qualified Code: K21.9 - Gastroesophageal reflux disease, esophagitis presence not specified (3) Atrial fibrillation: Qualified Code: I48.0 - Paroxysmal atrial fibrillation Lena Villar Aug 28, 2016 10:28 Guerline Lindsay MD Aug 28, 2016 12:29
--- NOTE | 2016-08-28 10:29 | HHI.FF ---
Face to Face Verification Diagnosis: (1) Upper GI bleed (2) Supratherapeutic INR (3) Hx of arteriovenous malformation (AVM) (4) GERD (gastroesophageal reflux disease) (5) Aphasia Physical Therapy Order: Evaluate and Treat Home Health Nursing Order: Medical education Nursing assessment with vital signs Welder Apprentice Order: To Evaluate: Support services Order: To Provide: Community services I have seen patient Danielle Turcios on 08/28/16. My clinical findings support the need for the requested home health care services because: Deconditioned w/ increased weakness Limited ability to care for self I certify that my clinical findings support that this patient is homebound because: Impaired cognitive ability/safety Unsteady gait/balance Lena Villar Aug 28, 2016 10:29
[2016-08-28] MEDS ORDERED: methylPREDNISolone SOD SUCC 40 MG/1 ML VIAL IV PUSH ONE (10:30)
--- NOTE | 2016-08-28 10:51 | HHI.GIFU ---
Subjective Remarks Patient is sitting up in chair, confused, not able to answer questions properly. Per nurse no signs of bleeding, no nausea or vomiting. Patient complained of some tenderness to the abdomen upon palpation, stating it always hurts. (Roberto Carlos Smith) Objective Vitals I&O Vital Signs Date Time Temp Pulse Resp B/P Pulse Ox O2 Delivery O2 Flow Rate FiO2 08/28/16 08:21 97 Nasal Cannula 2.00 08/28/16 08:05 97.8 78 16 128/59 97 08/28/16 04:00 98.0 84 18 146/67 93 08/28/16 00:00 97.9 81 18 125/58 96 08/27/16 20:03 98.2 85 16 113/58 96 08/27/16 20:00 Nasal Cannula 2.00 08/27/16 16:05 97.5 85 18 119/66 95 08/27/16 14:49 97 Nasal Cannula 2.00 08/27/16 12:05 97.8 86 18 159/82 96 I/O 08/27/16 08/27/16 08/27/16 08/28/16 08/28/16 08/28/16 07:00 15:00 23:00 07:00 15:00 23:00 Intake Total 829 ml 1195 ml 1330 ml 1017 ml Output Total 450 ml Balance 829 ml 1195 ml 1330 ml 567 ml Intake Oral 120 ml 480 ml 150 ml IV Total 348 ml 975 ml 850 ml 867 ml Other 481 ml 100 ml Output Urine Total 450 ml # Voids 2 7 4 2 # Bowel Movements 1 0 0 Laboratory Laboratory Tests Test 08/26/16 08/27/16 12:47 05:48 White Blood Count 8.0 TH/MM3 8.1 TH/MM3 Red Blood Count 3.02 MIL/MM3 3.16 MIL/MM3 Hemoglobin 8.7 GM/DL 9.3 GM/DL Hematocrit 27.4 % 27.6 % Mean Corpuscular Volume 90.8 FL 87.3 FL Mean Corpuscular Hemoglobin 28.8 PG 29.4 PG Mean Corpuscular Hemoglobin 31.8 % 33.7 % Concent Red Cell Distribution Width 19.6 % 19.4 % Platelet Count 171 TH/MM3 177 TH/MM3 Mean Platelet Volume 8.4 FL 8.1 FL Neutrophils (%) (Auto) 83.4 % 74.9 % Lymphocytes (%) (Auto) 6.9 % 10.1 % Monocytes (%) (Auto) 8.7 % 10.6 % Eosinophils (%) (Auto) 0.7 % 4.1 % Basophils (%) (Auto) 0.3 % 0.3 % Neutrophils # (Auto) 6.7 TH/MM3 6.0 TH/MM3 Lymphocytes # (Auto) 0.5 TH/MM3 0.8 TH/MM3 Monocytes # (Auto) 0.7 TH/MM3 0.9 TH/MM3 Eosinophils # (Auto) 0.1 TH/MM3 0.3 TH/MM3 Basophils # (Auto) 0.0 TH/MM3 0.0 TH/MM3 CBC Comment AUTO DIFF AUTO DIFF Differential Total Cells 100 100 Counted Neutrophils % (Manual) 72 % 71 % Band Neutrophils % 14 % 8 % Lymphocytes % 9 % 10 % Monocytes % 4 % 9 % Neutrophils # (Manual) 7.0 TH/MM3 6.5 TH/MM3 Myelocytes 1 % Differential Comment FINAL DIFF FINAL DIFF MANUAL MANUAL Platelet Estimate NORMAL NORMAL Platelet Morphology Comment NORMAL NORMAL Ovalocytes 1+ Sodium Level 144 MEQ/L 144 MEQ/L Potassium Level 3.1 MEQ/L 3.2 MEQ/L Chloride Level 113 MEQ/L 112 MEQ/L Carbon Dioxide Level 22.2 MEQ/L 25.8 MEQ/L Anion Gap 9 MEQ/L 6 MEQ/L Blood Urea Nitrogen 13 MG/DL 8 MG/DL Creatinine 0.70 MG/DL 0.64 MG/DL Estimat Glomerular Filtration 81 ML/MIN 90 ML/MIN Rate Random Glucose 161 MG/DL 126 MG/DL Calcium Level 7.5 MG/DL 7.2 MG/DL Eosinophils % 1 % Metamyelocytes 1 % Protein Corrected Calcium 8.2 MG/DL Total Protein 5.2 GM/DL Imaging Last Impressions Chest X-Ray 08/25/16 0000 Signed Impressions: Service Date/Time: Thursday, August 25, 2016 10:53 - CONCLUSION: 1. Postsurgical changes from pneumonectomy. 2. Right basilar infiltrate. Antwan Eason MD Small Bowel X-Ray 08/24/16 0000 Signed Impressions: Service Date/Time: Wednesday, August 24, 2016 12:04 - CONCLUSION: 1. Mild to moderate diffuse small bowel distention and increased small bowel transit time. 2. Large proximal thoracic esophageal diverticulum. 3. Evaluation of the colon is somewhat limited due to to incomplete distention but the appearance is suspicious for diffuse colitis. Dontrell Lovelace MD Physical Exam HEENT: Normocephalic; atraumatic; no jaundice. CHEST: CTA, diminished CARDIAC: RRR ABDOMEN: Soft, nondistended, diffused tenderness ; no hepatosplenomegaly; bowel sounds are present in all four quadrants. EXTREMITIES: No clubbing, cyanosis, or edema. HOSPITAL INTERNSHIP: alert and oriented. (Roberto Carlos Smith) Assessment and Plan Plan ASSESSMENT: - Upper GI bleeding. S/P EGD (08/27/16)---> gastritis, hiatal hernia, BX pending. Pt has not had any further hematemesis, or blood in stools SBFT (08/24/16) 1. Mild to moderate diffuse small bowel distention and increased small bowel transit time. 2. Large proximal thoracic esophageal diverticulum. - Anemia, acute blood loss. no more bleeding, hgb has been stable - Coagulopathy. S/P 6 units PRBC. INR 1.1 PLAN: - MICHELL - Await bx - SBFT unremarkable, will need CE as an OP - CBC in am - Protonix PO - Notify GI of active bleeding. - Supportive care - Patient seen and examined by Dr. Montez and myself and this note is written on his behalf. (Roberto Carlos Smith) Physician Comments Seen and examined with NANCY, no active bleeding reported.Monitor labs. ? colonoscopy. (Salome Montez MD) Roberto Carlos Smith Aug 28, 2016 10:51 Salome Montez MD Aug 28, 2016 17:18
[2016-08-28] MEDS: MORPHINE SULFATE 4 MG/ML INJ IV PRN ×2 (11:08→15:52)
[2016-08-28] MEDS: RESP: ALBUTEROL 2.5 MG/IPRATROPIUM 0.5 MG NEB (SCH) NEB ×2 (15:45→19:44)
[2016-08-28] MEDS: AZITHROMYCIN INJ 250 MG in SODIUM CHLOR 0.9% 250 ML INJ 250 ML IV SCH (20:26)
[2016-08-28] MEDS: PANTOPRAZOLE SOD 40 MG DELAYED RELEASE TAB PO SCH (20:28)
[2016-08-28] MEDS: cefTRIAXone INJ 1,000 MG in SODIUM CHLORIDE 0.9% INJ 100 ML IV SCH (20:28)
[2016-08-29] VITALS (13 sets, daily range): BP systolic 116–136; BP diastolic 56–63; PULSE 72–96; RESP 16–18; TEMP 95.5–98.2; O2SAT 92–99
[2016-08-29] MEDS: CHLORHEXIDINE GLUCONATE 2 % 1 PACK (2 CLOTHS)(taper/protocol) TOP SCH (04:00)
[2016-08-29] MEDS: metroNIDAZOLE 250 MG INJ 50 ML IV SCH ×3 (06:05→22:58)
[2016-08-29] MEDS: RESP: ALBUTEROL 2.5 MG/IPRATROPIUM 0.5 MG NEB (SCH) NEB ×3 (07:45→19:24)
[2016-08-29] MEDS: PANTOPRAZOLE SOD 40 MG DELAYED RELEASE TAB PO SCH ×2 (08:32→21:05)
[2016-08-29] MEDS: FUROSEMIDE 20 MG TAB PO SCH (08:33)
[2016-08-29] MEDS: SODIUM CHLORIDE 0.9% FLUSH 5 ML FLUSH IV FLUSH SCH ×2 (08:33→21:04)
--- NOTE | 2016-08-29 09:58 | HHI.PR ---
Subjective Hospital Day: 2 Subjective Remarks Abdominal pain, low left and right quadrants Poor historian, but answer simple question Appetite good No nausea vomiting No other complaints Review of Systems Constitutional Constitutional: Fatigue, Weakness Constitutional Remarks 10 point ROS done with limited exam. Positives noted, otherwise unremarkable Pulmonary Respiratory: Wheezing GI/Abdomen GI/Abdomen Remarks Gen. last abdominal pain, lower quadrants, with palpation Musculoskeletal MS: Weakness MS Remarks Generalized Neurologic Neurologic Remarks Poor historian Psychiatric Psychiatric: Normal Mood Vitals/Results Intake & Output 08/28/16 08/28/16 08/29/16 15:00 23:00 07:00 Intake Total 705 ml 240 ml 200 ml Output Total 2 ml Balance 705 ml 238 ml 200 ml Intake Oral 480 ml 240 ml 200 ml IV Total 225 ml Stool Total 2 ml # Voids 7 7 4 # Bowel Movements 2 0 Vital Signs Vital Signs Date Time Temp Pulse Resp B/P Pulse Ox O2 Delivery O2 Flow Rate FiO2 08/29/16 08:05 97.2 96 16 123/59 97 08/29/16 07:46 98 Nasal Cannula 3.00 08/29/16 04:00 97.9 84 18 116/59 92 08/29/16 00:00 97.3 84 18 120/62 96 08/28/16 20:10 84 08/28/16 20:00 Nasal Cannula 2.00 08/28/16 19:45 95 Nasal Cannula 2.00 08/28/16 15:47 98 Nasal Cannula 2.00 08/28/16 14:05 97.5 92 16 119/58 97 08/28/16 12:05 98.1 90 16 128/60 97 CBC/BMP: 08/27/16 0548 08/27/16 0548 Lab Results Laboratory Tests Test 08/23/16 08/23/16 08/25/16 08/26/16 10:34 17:21 05:55 12:47 Crossmatch Leukocyte-Reduced Red Blood Cells Blood Bank Comment Nucleated Red Blood Cells 1 /100 WBC Magnesium Level 2.0 MG/DL Myelocytes 1 % Ovalocytes 1+ Test 08/27/16 05:48 White Blood Count 8.1 TH/MM3 Red Blood Count 3.16 MIL/MM3 Hemoglobin 9.3 GM/DL Hematocrit 27.6 % Mean Corpuscular Volume 87.3 FL Mean Corpuscular Hemoglobin 29.4 PG Mean Corpuscular Hemoglobin 33.7 % Concent Red Cell Distribution Width 19.4 % Platelet Count 177 TH/MM3 Mean Platelet Volume 8.1 FL Neutrophils (%) (Auto) 74.9 % Lymphocytes (%) (Auto) 10.1 % Monocytes (%) (Auto) 10.6 % Eosinophils (%) (Auto) 4.1 % Basophils (%) (Auto) 0.3 % Neutrophils # (Auto) 6.0 TH/MM3 Lymphocytes # (Auto) 0.8 TH/MM3 Monocytes # (Auto) 0.9 TH/MM3 Eosinophils # (Auto) 0.3 TH/MM3 Basophils # (Auto) 0.0 TH/MM3 CBC Comment AUTO DIFF Differential Total Cells 100 Counted Neutrophils % (Manual) 71 % Band Neutrophils % 8 % Lymphocytes % 10 % Monocytes % 9 % Eosinophils % 1 % Neutrophils # (Manual) 6.5 TH/MM3 Metamyelocytes 1 % Differential Comment FINAL DIFF MANUAL Platelet Estimate NORMAL Platelet Morphology Comment NORMAL Sodium Level 144 MEQ/L Potassium Level 3.2 MEQ/L Chloride Level 112 MEQ/L Carbon Dioxide Level 25.8 MEQ/L Anion Gap 6 MEQ/L Blood Urea Nitrogen 8 MG/DL Creatinine 0.64 MG/DL Estimat Glomerular Filtration 90 ML/MIN Rate Random Glucose 126 MG/DL Calcium Level 7.2 MG/DL Protein Corrected Calcium 8.2 MG/DL Total Protein 5.2 GM/DL Imaging Remarks Last Impressions Chest X-Ray 08/25/16 0000 Signed Impressions: Service Date/Time: Thursday, August 25, 2016 10:53 - CONCLUSION: 1. Postsurgical changes from pneumonectomy. 2. Right basilar infiltrate. Antwan Eason MD Small Bowel X-Ray 08/24/16 0000 Signed Impressions: Service Date/Time: Wednesday, August 24, 2016 12:04 - CONCLUSION: 1. Mild to moderate diffuse small bowel distention and increased small bowel transit time. 2. Large proximal thoracic esophageal diverticulum. 3. Evaluation of the colon is somewhat limited due to to incomplete distention but the appearance is suspicious for diffuse colitis. Dontrell Lovelace MD Current Medications Active Medications Methylprednisolone Sodium Succinate (SoluMEDROL INJ) 80 mg ONCE ONCE IV PUSH Last administered on 08/28/16t 11:07; Admin Dose 80 MG; Start 08/28/16 at 10:30; Stop 08/28/16 at 10:40; Status DC Pantoprazole Sodium (Protonix) 40 mg Q12HR PO Last administered on 08/29/16t 08: 32; Admin Dose 40 MG; Start 08/28/16 at 21:00 Physical Exam General General Appearance: Well Developed, Comfortable, Pale, Malnourished Eyes Eye Exam: Pupils Equal, Pupils Reactive Ears & Nose Ears & Nose Exam: Nasal Mucosa [place] Throat Throat Exam: Oral Mucosa [place] & Moist Neck Neck Exam: Neck Supple, Trachea Midline Pulmonary Resp Exam: Breath Sounds Equal, No Distress, Decreased Bases, Diminished Breath Sounds, Poor Inspiratory Effort Resp Remarks Expiratory wheezes, decreased breath sounds right greater than left Cardiology CV Exam: Regular, Normal Sinus Rhythm, Good Perfusion Gastrointestinal/Abdomen GI Exam: Soft, Non-Tender, Bowel Sounds Present, Non-Distended GI Remarks Appetite good Genitourinary Remarks Will DC John today Musculoskeletal MS Exam: Normal Tone Integumentary Skin Exam: Warm, Dry Skin Remarks Pale Extremeties Extremities Exam: Pedal Pulses Palpable, Trace Edema Extremeties Remarks Right lower extremity Neurologic Neuro Exam: Alert, Awake, Oriented, Moving All Extremities, No Focal Deficits Psychiatric Psych Exam: Appropriate Responses VTE Prophylaxis VTE Prophylaxis Device: SCDs PUD Prophylasis PUD Prophylaxis: Protonix Assessment/Plan Problem List: (1) Acute blood loss anemia (2) Hx of arteriovenous malformation (AVM) (3) Supratherapeutic INR (4) Upper GI bleed (5) History of CVA (cerebrovascular accident) without residual deficits (6) Hypertension (7) GERD (gastroesophageal reflux disease) (8) Renal insufficiency (9) Atrial fibrillation (10) History of seizures (11) Aphasia (12) Infiltrate noted on imaging study Plan: Assessment/Plan Acute GI bleed -S/P 2 PRBC, 6 FFP -No anticoagulation for now -INR 1 -Appreciate GI input Plan to do CT, further testing before DC -continue PPI orally -H&H stable, monitor Acute renal injury, secondary to dehydration-resolved Discontinue IV fluid Coagulopathy, on Coumadin-resolved Continue to hold Coumadin 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 -Continue Lasix and Norvasc, Hypokalemia, labs pending this a.m., she has been treated with supplemental potassium. GERD, Continue PPI -Continue Duonebs -OOB SCDs for DVT prophylaxis Protonix for GI prophylaxis PT eval and tx Case management consultation for discharge planning, home health care with physical therapy Spoke with Dr. Lindsay. GI planning further testing which will include CT. No discharge for now. D/W RN D/W pt D/W Dr. Lindsay Patient was seen by myself and Dr. Lindsay, this note is written on his behalf Problem Qualifiers (1) Hypertension: Qualified Code: I10 - Essential hypertension (2) GERD (gastroesophageal reflux disease): Qualified Code: K21.9 - Gastroesophageal reflux disease, esophagitis presence not specified (3) Atrial fibrillation: Qualified Code: I48.0 - Paroxysmal atrial fibrillation Miguelina Irwin Aug 29, 2016 09:58
[2016-08-29 10:10] LABS: BICARBONATE 28.4 MEQ/L (21.0-32.0); POTASSIUM 3.7 MEQ/L (3.5-5.1)
[2016-08-29] MEDS ORDERED: DIATRIZOATE MEGLUM/DIATRIZOATE SOD 9 ML CUP PO ONE (10:15)
[2016-08-29 10:48] LABS: HEMATOCRIT 30.3 % (35.0-46.0); MEAN CELL VOLUME 86.7 FL (80.0-100.0); MEAN CORPUSCULAR HEMOGLOBIN 28.3 PG (27.0-34.0); MEAN CORPUSCULAR HGB CONC 32.7 % (32.0-36.0); PLATELET COUNT 264 TH/MM3 (150-450); RED CELL DISTRIBUTION WIDTH 18.8 % (11.6-17.2); WHITE BLOOD COUNT 9.6 TH/MM3 (4.0-11.0)
[2016-08-29 11:14] LABS: REVIEW FLAG FINAL
--- NOTE | 2016-08-29 12:53 | HHI.GIFU ---
Subjective Remarks Patient is sitting up in chair with complaints of abdomen pain pointing to LLQ and lower area, upon palpation, the pain seems to be worse in RLQ. States the pain is always there. Denies nausea, vomiting or hematochezia. (Roberto Carlos Smith) Objective Vitals I&O Vital Signs Date Time Temp Pulse Resp B/P Pulse Ox O2 Delivery O2 Flow Rate FiO2 08/29/16 08:05 97.2 96 16 123/59 97 08/29/16 07:46 98 Nasal Cannula 3.00 08/29/16 04:00 97.9 84 18 116/59 92 08/29/16 00:00 97.3 84 18 120/62 96 08/28/16 20:10 84 08/28/16 20:00 Nasal Cannula 2.00 08/28/16 19:45 95 Nasal Cannula 2.00 08/28/16 15:47 98 Nasal Cannula 2.00 08/28/16 14:05 97.5 92 16 119/58 97 I/O 08/28/16 08/28/16 08/28/16 08/29/16 08/29/16 08/29/16 07:00 15:00 23:00 07:00 15:00 23:00 Intake Total 1017 ml 705 ml 240 ml 200 ml Output Total 450 ml 2 ml Balance 567 ml 705 ml 238 ml 200 ml Intake Oral 150 ml 480 ml 240 ml 200 ml IV Total 867 ml 225 ml Output Urine Total 450 ml Stool Total 2 ml # Voids 2 7 7 4 # Bowel Movements 2 0 Laboratory Laboratory Tests Test 08/29/16 08:40 White Blood Count 9.6 Red Blood Count 3.50 Hemoglobin 9.9 Hematocrit 30.3 Mean Corpuscular Volume 86.7 Mean Corpuscular Hemoglobin 28.3 Mean Corpuscular Hemoglobin 32.7 Concent Red Cell Distribution Width 18.8 Platelet Count 264 Mean Platelet Volume 8.3 Sodium Level 139 Potassium Level 3.7 Chloride Level 103 Carbon Dioxide Level 28.4 Anion Gap 8 Blood Urea Nitrogen 8 Creatinine 0.71 Estimat Glomerular Filtration 80 Rate Random Glucose 148 Calcium Level 8.0 Imaging Last Impressions Chest X-Ray 08/25/16 0000 Signed Impressions: Service Date/Time: Thursday, August 25, 2016 10:53 - CONCLUSION: 1. Postsurgical changes from pneumonectomy. 2. Right basilar infiltrate. Antwan F. Tocci, MD Small Bowel X-Ray 08/24/16 0000 Signed Impressions: Service Date/Time: Wednesday, August 24, 2016 12:04 - CONCLUSION: 1. Mild to moderate diffuse small bowel distention and increased small bowel transit time. 2. Large proximal thoracic esophageal diverticulum. 3. Evaluation of the colon is somewhat limited due to to incomplete distention but the appearance is suspicious for diffuse colitis. Dontrell Lovelace MD Physical Exam HEENT: Normocephalic; atraumatic; no jaundice. CHEST: CTA, diminished CARDIAC: RRR ABDOMEN: Soft, nondistended, diffused tenderness more in RLQ ; no hepatosplenomegaly; bowel sounds are present in all four quadrants. EXTREMITIES: No clubbing, cyanosis, or edema. 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 (Roberto Carlos Smith) Assessment and Plan Plan ASSESSMENT: - Upper GI bleeding. S/P EGD (08/27/16)---> gastritis, hiatal hernia, BX suggestive of a reactive gastropathy. Pt has not had any further hematemesis, or blood in stools SBFT (08/24/16) 1. Mild to moderate diffuse small bowel distention and increased small bowel transit time. 2. Large proximal thoracic esophageal diverticulum. - Abdomen pain, lower worse in RLQ area, CT ordered, patient had EGD/ colonoscopy (05/28/16)----->hiatal hernia, gastritis, irregular z-line, colon polyps, diverticulosis. Pathology revealed features suggestive of a reactive gastropathy, no Helicobacter pylori-like organisms are present. Colon with tubular adenoma. - Anemia, acute blood loss. no more bleeding, hgb has been stable - Coagulopathy. S/P 6 units PRBC. INR 1.1 PLAN: - MICHELL - Await CT - SBFT, EGD/colonoscopy (05/28/16), EGD (08/27/16) no signs of bleeding, will need CE as an OP - Monitor labs - Protonix PO - Supportive care - Patient seen and examined by Dr. Montez and myself and this note is written on his behalf. (Roberto Carlos Smith) Physician Comments Seen and examined with NANCY, still with abdominal pain. CT abd/pelvis ordered. Recent colonoscopy with polyp removal 06/06. Discussed with Dr. lewis. (Salome Montez MD) Roberto Carlos Smith Aug 29, 2016 12:53 Salome Montez MD Aug 29, 2016 13:49
[2016-08-29] MEDS ORDERED: IOHEXOL 350 MG/ML 10 ML VIAL (for RAD DIAG) IV ONE (15:50)
--- NOTE | 2016-08-29 18:23 | RADRPT ---
EXAM DATE/TIME: 08/29/2016 15:38 [facility] COMPARISON: No previous studies available for comparison. INDICATIONS : Anemia, possible gastrointestinal bleed, abdominal pain IV CONTRAST: 78 cc Omnipaque 350 (iohexol) IV ORAL CONTRAST: Prescribed oral contrast ingested. RADIATION DOSE: 9.96 CTDIvol (mGy) MEDICAL HISTORY : Cardiovascular disease. Gastroesophageal reflux disease. Hypertension.coln cancer, lung cancer SURGICAL HISTORY : Hysterectomy. ENCOUNTER: Initial ACUITY: 1 day PAIN SCALE: 7/10 LOCATION: abdomen TECHNIQUE: Volumetric scanning of the abdomen and pelvis was performed. Using automated exposure control and ad justment of the mA and/or kV according to patient size, radiation dose was kept as low as reasonably achievable to obtain optimal diagnostic quality images. FINDINGS: There is a small right-sided pleural effusion with right basilar atelectasis. There is previous left pneumonectomy with residual pleural thickening and mediastinal shift. Small to moderate hiatal hernia . Gallbladder not visualized. Mild biliary ductal dilatation with common bile duct measuring up to 13 m m. Spleen, adrenals and pancreas unremarkable. Mild renal parenchymal scarring. There is mild anasarca. Trace free fluid. No free air. No bowel obstruction. There is colonic diverti culosis. There is also mild mural thickening of the left colon characteristic of a mild colitis. CONCLUSION: 1. Mild left-sided colitis. 2. Anasarca with small right pleural effusion and right basilar atelectasis. 3. Small to moderate hiatal hernia. 4. The gallbladder is absent. Mild biliary ductal dilatation. 5. No bowel obstruction or free air. Adrian Ghosh MD on August 29, 2016 at 18:14 Board Certified Radiologist. This report was verified electronically.
[2016-08-29] MEDS: AZITHROMYCIN INJ 250 MG in SODIUM CHLOR 0.9% 250 ML INJ 250 ML IV SCH (21:03)
[2016-08-29] MEDS: oxyCODONE/ACETAMINOPHEN 5 MG/325 MG TAB PO PRN (21:06)
[2016-08-29] MEDS: cefTRIAXone INJ 1,000 MG in SODIUM CHLORIDE 0.9% INJ 100 ML IV SCH (22:58)
[2016-08-30 04:15] VITALS: BP 128/58; PULSE 74; RESP 16; TEMP 97.4; O2SAT 97
[2016-08-30] MEDS: metroNIDAZOLE 250 MG INJ 50 ML IV SCH (06:57)
[2016-08-30 08:00] VITALS: BP 146/67; PULSE 80; PULSE 82; RESP 16; TEMP 97.4; O2SAT 98
[2016-08-30] MEDS: RESP: ALBUTEROL 2.5 MG/IPRATROPIUM 0.5 MG NEB (SCH) NEB ×3 (08:10→15:45)
[2016-08-30 08:12] VITALS: O2SAT 98
[2016-08-30] MEDS: PANTOPRAZOLE SOD 40 MG DELAYED RELEASE TAB PO SCH (09:17)
[2016-08-30] MEDS: FUROSEMIDE 20 MG TAB PO SCH (09:17)
[2016-08-30] MEDS ORDERED: METR-1 PO (10:53)
[2016-08-30] MEDS ORDERED: LEVA500T PO (10:55)
--- NOTE | 2016-08-30 11:03 | HHI.PR ---
Subjective Hospital Day: 2 Subjective Remarks diarrhea off and on. On IV antibiotics alert, responds Appetite good No nausea vomiting No other complaints Review of Systems Constitutional Constitutional: Fatigue, Weakness Constitutional Remarks 10 point ROS done with limited exam. Positives noted, otherwise unremarkable Pulmonary Respiratory: Wheezing GI/Abdomen GI/Abdominal Exam: Diarrhea GI/Abdomen Remarks abd pain, improved. Musculoskeletal MS: Weakness MS Remarks Generalized Neurologic Neurologic Remarks Poor historian Psychiatric Psychiatric: Normal Mood Vitals/Results Intake & Output 08/29/16 08/29/16 08/30/16 15:00 23:00 07:00 Intake Total 240 ml 790 ml 210 ml Output Total 350 ml Balance 240 ml 790 ml -140 ml Intake Oral 240 ml 390 ml 160 ml IV Total 400 ml 50 ml Output Urine Total 350 ml # Voids 8 4 # Bowel Movements 3 0 0 Vital Signs Vital Signs Date Time Temp Pulse Resp B/P Pulse Ox O2 Delivery O2 Flow Rate FiO2 08/30/16 08:12 98 Nasal Cannula 2.00 08/30/16 08:00 97.4 80 16 146/67 98 08/30/16 04:15 97.4 74 16 128/58 97 08/30/16 04:15 Nasal Cannula 2.00 08/29/16 23:24 Nasal Cannula 2.00 08/29/16 23:24 97.3 88 16 136/63 98 08/29/16 20:26 91 08/29/16 19:27 99 Nasal Cannula 2.00 08/29/16 19:15 Nasal Cannula 2.00 08/29/16 19:15 96.0 79 18 119/56 99 08/29/16 16:20 95.5 85 18 136/62 98 08/29/16 16:02 95.5 85 18 136/62 98 08/29/16 12:05 98.2 80 16 133/57 98 CBC/BMP: 08/29/16 0840 08/29/16 0840 Imaging Remarks Last Impressions Abdomen/Pelvis CT 08/29/16 0000 Signed Impressions: Service Date/Time: Monday, August 29, 2016 15:38 - CONCLUSION: 1. Mild left-sided colitis. 2. Anasarca with small right pleural effusion and right basilar atelectasis. 3. Small to moderate hiatal hernia. 4. The gallbladder is absent. Mild biliary ductal dilatation. 5. No bowel obstruction or free air. Adrian Ghosh MD Chest X-Ray 08/25/16 0000 Signed Impressions: Service Date/Time: Thursday, August 25, 2016 10:53 - CONCLUSION: 1. Postsurgical changes from pneumonectomy. 2. Right basilar infiltrate. Antwan Eason MD Small Bowel X-Ray 08/24/16 0000 Signed Impressions: Service Date/Time: Wednesday, August 24, 2016 12:04 - CONCLUSION: 1. Mild to moderate diffuse small bowel distention and increased small bowel transit time. 2. Large proximal thoracic esophageal diverticulum. 3. Evaluation of the colon is somewhat limited due to to incomplete distention but the appearance is suspicious for diffuse colitis. Dontrell Lovelace MD Current Medications Active Medications Iohexol (Omnipaque 350 Inj) 78 ml STK-MED ONCE IV Last administered on 08/29/16t 15:50; Admin Dose 78 ML; Start 08/29/16 at 15:50; Stop 08/29/16 at 15:51; Status DC Physical Exam General General Appearance: Well Developed, Comfortable, Pale, Malnourished Eyes Eye Exam: Pupils Equal, Pupils Reactive Ears & Nose Ears & Nose Exam: Nasal Mucosa [place] Throat Throat Exam: Oral Mucosa [place] & Moist Neck Neck Exam: Neck Supple, Trachea Midline Pulmonary Resp Exam: Breath Sounds Equal, No Distress, Decreased Bases, Diminished Breath Sounds, Poor Inspiratory Effort Resp Remarks Expiratory wheezes, decreased breath sounds right greater than left Cardiology CV Exam: Regular, Normal Sinus Rhythm, Good Perfusion Gastrointestinal/Abdomen GI Exam: Soft, Non-Tender, Bowel Sounds Present, Non-Distended GI Remarks Appetite good Genitourinary Remarks Will DC John today Musculoskeletal MS Exam: Normal Tone Integumentary Skin Exam: Warm, Dry Skin Remarks Pale Extremeties Extremities Exam: Pedal Pulses Palpable, Trace Edema Extremeties Remarks Right lower extremity Neurologic Neuro Exam: Alert, Awake, Oriented, Moving All Extremities, No Focal Deficits Psychiatric Psych Exam: Appropriate Responses VTE Prophylaxis VTE Prophylaxis Device: SCDs PUD Prophylasis PUD Prophylaxis: Protonix Assessment/Plan Problem List: (1) Acute blood loss anemia (2) Hx of arteriovenous malformation (AVM) (3) Supratherapeutic INR (4) Upper GI bleed (5) History of CVA (cerebrovascular accident) without residual deficits (6) Hypertension (7) GERD (gastroesophageal reflux disease) (8) Renal insufficiency (9) Atrial fibrillation (10) History of seizures (11) Aphasia (12) Infiltrate noted on imaging study Plan: Assessment/Plan Acute GI bleed -S/P 2 PRBC, 6 FFP -No anticoagulation for now -INR 1 -Appreciate GI input -continue PPI orally -H&H stable, Acute renal injury, secondary to dehydration-resolved Discontinue IV fluid Coagulopathy, on Coumadin-resolved Continue to hold Coumadin 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 -Continue Lasix and Norvasc, GERD, Continue PPI -Continue Duonebs -OOB SCDs for DVT prophylaxis Protonix for GI prophylaxis PT eval and tx Case management consultation for discharge planning, home health care with physical therapy. Stable for discharge today. To SNF. Spoke with Dr. Lindsay. Agree with plan. Sent with Flagyl 500mg. stable for discharge today 8 hrs.PO every Levaquin 500mg. every day X 5 days. D/W RN D/W pt D/W Dr. Lindsay Patient was seen by myself and Dr. Lindsay, this note is written on his behalf Problem Qualifiers (1) Hypertension: Qualified Code: I10 - Essential hypertension (2) GERD (gastroesophageal reflux disease): Qualified Code: K21.9 - Gastroesophageal reflux disease, esophagitis presence not specified (3) Atrial fibrillation: Qualified Code: I48.0 - Paroxysmal atrial fibrillation Miguelina Irwin Aug 30, 2016 11:03
[2016-08-30 12:00] VITALS: BP 122/60; PULSE 72; RESP 20; TEMP 97.8; O2SAT 99
[2016-08-30] MEDS ORDERED: metroNIDAZOLE 250 MG TAB PO SCH (14:00)
[2016-08-30 15:18] LABS: C. DIFF EPI 027 PRESUMPTIVE NEGATIVE (NEGATIVE); C. DIFF TOXIN PCR NEGATIVE (NEGATIVE)
--- NOTE | 2016-08-30 15:38 | HHI.DS ---
Discharge Summary Admission Date Aug 23, 2016 at 11:01 Discharge Date: Aug 30, 2016 Admitting Diagnosis GI bleed/significant anemia (1) Upper GI bleed Diagnosis: Principal (2) Anemia Diagnosis: Principal (3) Coagulopathy Diagnosis: Secondary (4) History of CVA (cerebrovascular accident) without residual deficits Diagnosis: Secondary (5) Aphasia Diagnosis: Secondary (6) Hypertension Diagnosis: Principal (7) GERD (gastroesophageal reflux disease) Diagnosis: Secondary (8) Atrial fibrillation Diagnosis: Secondary (9) Supratherapeutic INR Diagnosis: Principal (10) Hx of arteriovenous malformation (AVM) Diagnosis: Secondary (11) Renal insufficiency Diagnosis: Principal Procedures scope Brief History This was a pleasant 76-year-old white female who had a significant past medical history of A. fib on Coumadin, prior strokes with expressive aphasia, previous admissions for GI bleed and findings of AVM, previous blood transfusions, aortic stenosis, colon and lung cancer, left pneumonectomy 2006, colon resection. Pt. recently admitted 2015 for GI bleed, underwent GI work up and bleeding scan, required PRBC transfusion. EGD/Colonoscopy (05/28/16) showed hiatal hernia, gastritis, irregular z-line, colon polyps, diverticulosis. Pathology revealed features suggestive of a reactive gastropathy, no helicobacter pylori-like organisms are present. Colon with tubular adenoma. Pt. was discharged stable, she resumed Coumadin. Pt. was a poor historian, information obtained from daughter. Pt. was in usual state of health, eating well, but day of admssion, pt. started to have hematemesis, red blood since the morning, had 4-5 episodes. At that time she was actively vomiting blood, approximately 300 cc noted. Complains of diffuse abdominal cramping. had bloody stools as well. INR was supratherapeutic, INR 5.5. HH 7.5/23. She was dehydrated, elevated BUN and creat 44/1.47. CBC/BMP: 08/29/16 0840 08/29/16 0840 Significant Findings Laboratory Tests Test 08/29/16 08:40 Red Blood Count 3.50 MIL/MM3 (4.00-5.30) Hemoglobin 9.9 GM/DL (11.6-15.3) Hematocrit 30.3 % (35.0-46.0) Red Cell Distribution Width 18.8 % (11.6-17.2) Estimat Glomerular Filtration 80 ML/MIN (>89) Rate Random Glucose 148 MG/DL (74-106) Calcium Level 8.0 MG/DL (8.5-10.1) Imaging Last Impressions Abdomen/Pelvis CT 08/29/16 0000 Signed Impressions: Service Date/Time: Monday, August 29, 2016 15:38 - CONCLUSION: 1. Mild left-sided colitis. 2. Anasarca with small right pleural effusion and right basilar atelectasis. 3. Small to moderate hiatal hernia. 4. The gallbladder is absent. Mild biliary ductal dilatation. 5. No bowel obstruction or free air. Adrian Ghosh MD Chest X-Ray 08/25/16 0000 Signed Impressions: Service Date/Time: Thursday, August 25, 2016 10:53 - CONCLUSION: 1. Postsurgical changes from pneumonectomy. 2. Right basilar infiltrate. Antwan Eason MD Small Bowel X-Ray 08/24/16 0000 Signed Impressions: Service Date/Time: Wednesday, August 24, 2016 12:04 - CONCLUSION: 1. Mild to moderate diffuse small bowel distention and increased small bowel transit time. 2. Large proximal thoracic esophageal diverticulum. 3. Evaluation of the colon is somewhat limited due to to incomplete distention but the appearance is suspicious for diffuse colitis. Dontrell Lovelace MD PE at Discharge General General Appearance: Well Developed, Comfortable, Pale, Malnourished Eyes Eye Exam: Pupils Equal, Pupils Reactive Ears & Nose Ears & Nose Exam: Nasal Mucosa [place] Throat Throat Exam: Oral Mucosa [place] & Moist Neck Neck Exam: Neck Supple, Trachea Midline Pulmonary Resp Exam: Breath Sounds Equal, No Distress, Decreased Bases, Diminished Breath Sounds, Poor Inspiratory Effort Resp Remarks Expiratory wheezes, decreased breath sounds right greater than left Cardiology CV Exam: Regular, Normal Sinus Rhythm, Good Perfusion Gastrointestinal/Abdomen GI Exam: Soft, Non-Tender, Bowel Sounds Present, Non-Distended GI Remarks Appetite good Genitourinary Remarks Will DC John today Musculoskeletal MS Exam: Normal Tone Integumentary Skin Exam: Warm, Dry Skin Remarks Pale Extremeties Extremities Exam: Pedal Pulses Palpable, Trace Edema Extremeties Remarks Right lower extremity Neurologic Neuro Exam: Alert, Awake, Oriented, Moving All Extremities, No Focal Deficits Psychiatric Psych Exam: Appropriate Responses VTE Prophylaxis VTE Prophylaxis Device: SCDs PUD Prophylasis PUD Prophylaxis: Protonix Hospital Course In the ER, patient was given Vit K, started on PPI drip. GI was evaluated and plans to scope tomorrow. Due to pt. actively bleeding, I have contacted Dr Nicholas as pt will need intervention tonight. Daughter is at bedside, she understands risk associated with procedure, shock, respiratory failure possible intubation. They both agree with procedure. Daughter endorsed that pt is on Coumadin for CVA and hx afib. Recently changed cardiologists, now sees Dr. Waggoner. She is concerned about pt. going back on Coumadin as she continues to have recurrent GI bleeding but understands she is at risk for strokes. Pt. was hemodynamically stable, she was awake, somewhat anxious but understands what was happening. Denies any CP, SOB, no recent fever, no chills. After stablizing in ER, patient was admitted to ICU, case had been discussed with Dr. Nichols. On admission, these are the diagnosis that were used for her Plan of Care. (1) Acute blood loss anemia (2) Hx of arteriovenous malformation (AVM) (3) Supratherapeutic INR (4) Upper GI bleed (5) History of CVA (cerebrovascular accident) without residual deficits (6) Hypertension (7) GERD (gastroesophageal reflux disease) (8) Renal insufficiency (9) Atrial fibrillation (10) History of seizures (11) Aphasia (12) Infiltrate noted on imaging study Plan: For her Acute GI bleed pt. was given 2 units PRBC, 6 FFP anticoagulation for now was held. PT-INR was 1.0 -Appreciate GI consult and input. during hospital stay. Appreciate cardiology consult for expert opinion, medical management , but will see prn if needed. -continue PPI orally, reconciled home meds. -H&H was monitored through out stay, as well as chemistry labs. Acute renal injury, secondary to dehydration-resolved with gentle hydration Once patient was stablized , IVFs were d/cd. Coagulopathy, on Coumadin before discharge. Coumadin held and not restarted on discharge. Sinus rhythm heart rate 86, monitoring engineer throughout stay History of CVA, patient has residual expressive aphasia,but speech is understandable History hypertension,was hypotensive on admission, stablized with fluids, meds. blood. -Continue Lasix and Norvasc, her home meds. GERD, Continue PPI -Continue Duonebs -OOB SCDs used for DVT prophylaxis Protonix used for GI prophylaxis PT eval and tx during hospital stay for mobility and strenghening. Positive results. Case management consultation initiated for discharge planning, home health care with physical therapy was the first plan. Later, it was decided to plave in SNF, rehab for further strenghening. Stable for discharge today. To SNF. Spoke with Dr. Lindsay. Agree with plan. New scripts: Sent with Flagyl 500mg. stable for discharge today 8 hrs.PO every Levaquin 500mg. every day X 5 days. Pt Condition on Discharge: Stable Discharge Disposition: Discharge to SNF Discharge Instructions DIET: Follow Instructions for: Heart Healthy Diet Activities you can perform: Regular-No Restrictions Follow up Referrals: Gastroenterology X 2 weeks PCP Follow-up X 2 weeks New Medications: Levofloxacin (Levaquin) 500 Mg Tab 500 MG PO DAILY Diarrhea Days 5 Ref 0 TAB Metronidazole (Flagyl) 500 Mg Tab 500 MG PO Q8HR Infection #21 Ref 0 TAB Continued Medications: Amlodipine (Amlodipine) 10 Mg Tab 10 MG PO DAILY Blood Pressure Management #30 Ref 0 TAB Digoxin (Digoxin) 0.125 Mg Tab 0.125 MG PO EVERY OTHER DAY Regulate Heart Beat #30 Ref 0 TAB Escitalopram (Escitalopram) 10 Mg Tab 10 MG PO DAILY #30 Ref 0 TAB Furosemide (Furosemide) 20 Mg Tab 20 MG PO DAILY #30 Ref 0 TAB Mirtazapine (Mirtazapine) 15 Mg Tab 15 MG PO HS Depression Control #30 Ref 0 TAB Montelukast (Montelukast) 10 Mg Tab 10 MG PO HS #30 Ref 0 TAB Omeprazole (Omeprazole) 20 Mg Tab 20 MG PO DAILY #30 Ref 0 TAB Rosuvastatin (Crestor) 10 Mg Tab 10 MG PO DAILY Cholesterol Management #30 Ref 0 TAB Discontinued Medications: Ranitidine (Ranitidine) 300 Mg Tab 300 MG PO DAILY Heartburn Management #30 Ref 0 TAB Warfarin (Warfarin) 3 Mg Tab 3 MG PO DAILY Blood Clot Prevention #30 Ref 0 TAB Miguelina Irwin Aug 30, 2016 15:38
== END 2016-08-30 17:19 | DRG 377 ==
LOC: NEPE 09:38 → NEDA 11:01 → NEDH 17:19 → HPAC 23:36 → HIMW 08-24 08:30 → N04A 08-24 15:29
PROVIDERS: ADMIT Specialist; ATTEND Specialist
PROC: 30233N1 Transfusion of Nonautologous Red Blood Cells into Peripheral Vein, Percutaneous Approach (ICD-10-PCS; 2016-08-23)
PROC: 0DJ08ZZ Inspection of Upper Intestinal Tract, Via Natural or Artificial Opening Endoscopic (ICD-10-PCS; 2016-08-23)
PROC: 30233K1 Transfusion of Nonautologous Frozen Plasma into Peripheral Vein, Percutaneous Approach (ICD-10-PCS; principal; 2016-08-23 18:30)
PROC: 0DB68ZX Excision of Stomach, Via Natural or Artificial Opening Endoscopic, Diagnostic (ICD-10-PCS; 2016-08-27)
DX: K92.0 Hematemesis (principal); R57.8 Other shock; J69.0 Pneumonitis due to inhalation of food and vomit; N17.9 Acute kidney failure, unspecified; I95.9 Hypotension, unspecified; D68.32 Hemorrhagic disorder due to extrinsic circulating anticoagulants; D62 Acute posthemorrhagic anemia; I48.0 Paroxysmal atrial fibrillation; K92.1 Melena; E86.0 Dehydration; I69.320 Aphasia following cerebral infarction; K21.9 Gastro-esophageal reflux disease without esophagitis; I10 Essential (primary) hypertension; T45.515A Adverse effect of anticoagulants, initial encounter; E78.5 Hyperlipidemia, unspecified; F41.9 Anxiety disorder, unspecified; K44.9 Diaphragmatic hernia without obstruction or gangrene; K29.70 Gastritis, unspecified, without bleeding; K22.5 Diverticulum of esophagus, acquired; K31.9 Disease of stomach and duodenum, unspecified; Z79.01 Long term (current) use of anticoagulants; Z85.038 Personal history of other malignant neoplasm of large intestine; Z85.118 Personal history of other malignant neoplasm of bronchus and lung
CPT/HCPCS: 36430; 71010; 74177; 74250; 76937; 80048; 80053; 80076; 80162; 83690; 83735; 84100; 84155; 85007; 85014; 85018; 85025; 85027; 85610; 85730; 86850; 86900; 86901; 86920; 86927; 87493; 87641; 88305; 93005; 94150; 94640; 94664; 96365; 96368; C9113; J0456; J0696; J1364; J2060; J2270; J2354; J2405; J2765; J2920; J3430; J3480; J7030; J7040; J7050; J7121; P9016; P9017; Q9963; Q9967